=== PATIENT | male | born 1975 | race Caucasian/White ===

== ENCOUNTER 2016-10-12 08:29 | Emergency (ER) | payer MEDICAID ==
[~2016-10-12] VITALS: Ht 165.1 cm; Wt 68.0 kg
[~2016-10-12 08:29] MED LIST: QUET300T2 PO
[2016-10-12] MEDS ORDERED: IBUPROFEN 600 MG TABLET PO ONE ×2 (09:00→09:21)
[2016-10-12 10:28] VITALS: BP 132/90
== END 2016-10-12 10:29 | disposition home or self-care (01) ==
LOC: ER 08:32
DX: R05 Cough (principal); F31.9 Bipolar disorder, unspecified; F25.9 Schizoaffective disorder, unspecified; F17.200 Nicotine dependence, unspecified, uncomplicated; Z88.8 Allergy status to other drugs, medicaments and biological substances
CPT/HCPCS: 71010; 99283; A4606; Z7610

== ENCOUNTER 2017-02-13 01:42 | Emergency (ER) | payer MEDICAID ==
[~2017-02-13] VITALS: Ht 167.6 cm; Wt 64.9 kg
[2017-02-13] MEDS ORDERED: OLANZAPINE 5 MG/TAB.RAPDIS ONE (03:20)
[2017-02-13] MEDS: OLANZAPINE 5 MG/TAB.RAPDIS PO ONE (03:31)
[2017-02-13 06:01] VITALS: BP 136/88
== END 2017-02-13 06:03 | disposition home or self-care (01) ==
LOC: ER 01:47
DX: F15.10 Other stimulant abuse, uncomplicated (principal); F25.9 Schizoaffective disorder, unspecified; F31.9 Bipolar disorder, unspecified; F17.200 Nicotine dependence, unspecified, uncomplicated; Z98.890 Other specified postprocedural states; Z88.8 Allergy status to other drugs, medicaments and biological substances
CPT/HCPCS: A4606; Z7610

== ENCOUNTER 2017-08-16 00:11 | Emergency (ER) | payer MEDICAID ==
--- NOTE | 2017-08-16 00:35 | NUR ---
CALLED PT TO WR, NO RESPONSE. PT NOTED SLEEPING. PT STATES "I WANT TO SLEEP RIGHT NOW"
--- NOTE | 2017-08-16 01:10 | NUR ---
CALLED PT NAME TO DUSTIN. PT NOTED ASLEEP. CONTINUES TO STATES HE JUST WANTS TO SLEEP.
--- NOTE | 2017-08-16 01:56 | NUR ---
CALLED PT NAME. PT NOTED ASLEEP. PT EASILY AROUSED. PT STATES HE WANTS TO SLEEP AT THIS TIME.
--- NOTE | 2017-08-16 02:15 | NUR ---
CALLED PT IN WR. PT NOTED ASLEEP AND COMFORTABLE. PT STATES HE DOES NOT WANT TO BE SEEN AT THIS TIME. AND WOULD LIKE TO SLEEP.
== END 2017-08-16 02:15 | disposition home or self-care (01) ==
LOC: ER 00:12
DX: Z53.21 Procedure and treatment not carried out due to patient leaving prior to being seen by health care provider (principal)

== ENCOUNTER 2017-08-16 05:57 | Emergency (ER) | payer MEDICAID ==
[~2017-08-16] VITALS: Ht 167.6 cm; Wt 68.0 kg
[2017-08-16 06:10] VITALS: BP 135/79
== END 2017-08-16 06:53 | disposition home or self-care (01) ==
LOC: ER 05:59
DX: M79.671 Pain in right foot (principal); M79.672 Pain in left foot; B35.3 Tinea pedis; F20.9 Schizophrenia, unspecified; F17.200 Nicotine dependence, unspecified, uncomplicated; Z88.8 Allergy status to other drugs, medicaments and biological substances
CPT/HCPCS: 99282; A4606; Z7610

== ENCOUNTER 2017-12-12 01:37 | Emergency (ER) | payer MEDICAID ==
[~2017-12-12] VITALS: Ht 167.6 cm; Wt 59.9 kg
[2017-12-12 01:40] VITALS: BP 142/68
== END 2017-12-12 02:06 | disposition home or self-care (01) ==
LOC: ER 01:42
DX: F20.9 Schizophrenia, unspecified (principal); J06.9 Acute upper respiratory infection, unspecified; F10.10 Alcohol abuse, uncomplicated; F17.200 Nicotine dependence, unspecified, uncomplicated; Z88.8 Allergy status to other drugs, medicaments and biological substances
CPT/HCPCS: A4606; Z7502; Z7610

== ENCOUNTER 2018-01-19 05:34 | Emergency (ER) | payer MEDICAID ==
[~2018-01-19] VITALS: Ht 165.1 cm; Wt 68.0 kg
--- NOTE | 2018-01-19 05:40 | NUR ---
TO BED 13 A 43 YO MALE PATIENT BBRA 39 FROM [facility]; PER EMS, TOOK UNKNOWN MEDICATION. UPON ARRIVAL TO ER, PATIENT IS ASLEEP, MOANS/WITHDRAWS FROM DEEP PAIN. PUPILS SLOW TO DILATE WHEN SHOWN WITH LIGHT. PLACED PATIENT ON TELE MONITOR. VSS. WILL CLOSELY MONITOR. SAFETY MEASURES IN PLACE. DR WILSON AT BEDSIDE.
--- NOTE | 2018-01-19 05:55 | NUR ---
STARTED A SALINE LOCK ON THE RAC G18, BLOOD DRAWN AND SENT TO LAB.
[2018-01-19] MEDS ORDERED: NALOXONE HCL 0.4 MG/ML AMPUL IV ONE (06:00)
--- NOTE | 2018-01-19 06:03 | NUR ---
CLARIFIED NARCAN ORDER WITH DR HENRY HE IS TAKING OVER THE CARE OF PATIENT AND HE SAID, NARCAN 0.4MG GIVEN IS ENOUGH, NO NEED TO GIVE MORE DOSE.
[2018-01-19 06:15] LABS: APPEARANCE,URINE CLEAR (CLEAR); BILIRUBIN,URINE NEGATIVE (NEGATIVE); BLOOD, URINE NEGATIVE Ery/uL (NEGATIVE); COLOR,URINE YELLOW (YELLOW); KETONES,URINE NEGATIVE (NEGATIVE); LEUKOCYTE ESTERASE ,URINE NEGATIVE (NEGATIVE); NITRITE, URINE NEGATIVE (NEGATIVE); PROTEIN,URINE NEGATIVE (NEGATIVE); UGLUCOSE NEGATIVE (NEGATIVE); UROBILINOGEN,URINE 0.2 EU/dL (0.2)
[2018-01-19 06:18] LABS: CALCIUM, SERUM 9.2 mg/dL (8.5-10.1); CARBON DIOXIDE 26 mmol/L (21-32); CHLORIDE 105 mmol/L (98-107); CREATININE 0.8 mg/dL (0.6-1.3); GLUCOSE 157 mg/dL (74-106); POTASSIUM 3.5 mmol/L (3.5-5.1); SODIUM SERUM 138 mmol/L (136-145); UREA NITROGEN, BLOOD 16 mg/dL (7-18)
[2018-01-19 06:31] LABS: ALANINE AMINOTRANSFERASE 27 U/L (12-78); ALBUMIN 3.8 g/dL (3.4-5.0); ALCOHOL, BLOOD < 3 mg/dL (0-0); ALKALINE PHOSPHATASE 99 U/L (46-116); ASPARTATE AMINOTRANSFERASE 23 U/L (15-37); BILIRUBIN,TOTAL 0.7 mg/dL (0.2-1.0); TOTAL PROTEIN, SERUM 7.1 g/dL (6.4-8.2)
[2018-01-19 06:33] LABS: BASOPHILS % (AUTO) 0.2 % (0.0-2.0); EOSINOPHILS % (AUTO) 0.6 % (0.0-6.0); HEMATOCRIT 41 % (39-51); HEMOGLOBIN 13.8 g/dL (13.5-17.5); LYMPHOCYTES # (AUTO) 0.8 /CMM (0.8-4.8); LYMPHOCYTES % (AUTO) 7.3 % (20.0-44.0); MEAN CORPUSCULAR HGB CONC 34 g/dl (31.0-36.0); MEAN CORPUSCULAR VOLUME 87 fL (80-96); MONOCYTES # (AUTO) 0.4 /CMM (0.1-1.30); MONOCYTES % (AUTO) 3.5 % (2.0-12.0); NEUTROPHILS % (AUTO) 88.4 % (43.0-81.0); PLATELET COUNT (AUTO) 194 /CMM (150-450); RDW COEFFICIENT OF VARIATION 14.1 (11.5-15.0); RED BLOOD CELL COUNT(AUTO) 4.73 MIL/uL (4.5-6.0); WHITE BLOOD COUNT (AUTO) 11.4 K/uL (4.3-11.0)
[2018-01-19 06:38] LABS: ACETAMINOPHEN 0 ug/ml (10-30); SALICYLATE 0.3 mg/dL (2.8-20.0)
--- NOTE | 2018-01-19 08:00 | NUR ---
PT ASLEEP AROUSABLE TO CALL OF NAME GOES BACK TO SLEEP
--- NOTE | 2018-01-19 10:00 | NUR ---
PT ASLEEP AROUSABLE TO CALL OF NAME GOES BACK TO SLEEP
[2018-01-19] MEDS ORDERED: OLANZAPINE 10 MG VIAL IM ONE ×2 (11:00→11:12)
--- NOTE | 2018-01-19 11:00 | NUR ---
PT TRYING TO GET OOB AGITATED KICKING NEW ORDERS DR HENRY RESTRAINTS IN PLACED ORDERD
--- NOTE | 2018-01-19 14:38 | NUR ---
REMOVE RESTRAINTS PT SLEEPING AT THIS TIME.
--- NOTE | 2018-01-19 16:14 | NUR ---
PT AMBULATORY WITH STEADY GAIT, ALERT AND ORIENTED X 3
[2018-01-19 16:17] VITALS: BP 124/89
--- NOTE | 2018-01-19 16:27 | NUR ---
IV removed. Catheter intact and site benign. Pressure and 4x4 applied to site. No bleeding noted.
--- NOTE | 2018-01-19 16:32 | NUR ---
CALLED [facility] FOR TRANSPORT TO [facility], ETA 60 MIN, TRIP#[id number]
--- NOTE | 2018-01-19 16:51 | NUR ---
Patient discharged to home in stable condition. Written and verbal after care instructions given. Patient verbalizes understanding of instruction.
== END 2018-01-19 16:53 | disposition home or self-care (01) ==
LOC: ER 05:36
DX: F29 Unspecified psychosis not due to a substance or known physiological condition (principal); F10.10 Alcohol abuse, uncomplicated; F17.200 Nicotine dependence, unspecified, uncomplicated; F20.9 Schizophrenia, unspecified; Z60.2 Problems related to living alone; Z88.8 Allergy status to other drugs, medicaments and biological substances
CPT/HCPCS: 36415; 80048-TC; 80076-TC; 80305; 81000-TC; 85025-TC; A4606; G0480; J3490; Z7610

== ENCOUNTER 2018-06-25 19:35 | Emergency (ER) | payer MEDICAID ==
--- NOTE | 2018-06-25 21:39 | NUR ---
CALLED PT X3 IN WR. PER ADMITTING PT LEFT WITHOUT BEING SEEN.
== END 2018-06-25 21:51 | disposition left against medical advice (07) ==
LOC: ER 19:48
DX: Z53.21 Procedure and treatment not carried out due to patient leaving prior to being seen by health care provider (principal)

== ENCOUNTER 2019-05-13 07:01 | Emergency (ER) | payer MEDICAID ==
[~2019-05-13] VITALS: Ht 170.2 cm; Wt 70.3 kg
--- NOTE | 2019-05-13 07:20 | NUR ---
bb ra, per ems pt climbed on top of garbage truck. pt dennied any pain or discomfort at this time.
--- NOTE | 2019-05-13 08:39 | NUR ---
Social service consult requested by Dr. Osorio for homelessness. Pt. is a 44 year old male who was brought in by EMS because pt. was found inside a garbage truck. SW met with pt. bedside. Pt. is alert and oriented x 4. Pt. appears dirty and disheveled. Pt. is homeless. SW offered pt. senior living placement, however pt declined stating he is going to [facility]. SW inquired with pt. if he uses any drugs. Pt. stated methamphetamines. Pt. receives $900/ month in SSI. Pt. was provided with a TAP card and breakfast. The pt. was given the following homeless resources: [facility] located at [address] [facility]. ; [facility] [place], [address] [place] [address], [place] ; [facility] [place], [address] [facility] ; [facility] Homeless Resource Directory which includes food stamps, transitional housing, showers and hot meals etc; Mental Health clinics such as [facility] ; [facility] ; Health clinics;[facility] and Alcohol treatment centers such as [facility], ; [facility] Substance Abuse Hotline and [facility] . Homeless Patient waiver form was signed by the pt. and placed in pt's chart. No other social service needs are requested at this time.
--- NOTE | 2019-05-13 08:43 | NUR ---
BREAKFAST TRAY PROVIDED, PT TOLERATING PO WELL
[2019-05-13 09:06] VITALS: BP 138/87
--- NOTE | 2019-05-13 09:09 | NUR ---
Patient given written and verbal discharge instructions. Patient verbalizes understanding of instructions. Patient is ambulatory with steady gait. Refuses offer of usp placement. Patient given list of available shelters in surrounding area. Patient signed homeless waiver form, in proper clothing, name band removed.
== END 2019-05-13 09:12 | disposition home or self-care (01) ==
LOC: ER 07:04
DX: R46.1 Bizarre personal appearance (principal); Z88.8 Allergy status to other drugs, medicaments and biological substances; Z60.2 Problems related to living alone; Z79.899 Other long term (current) drug therapy

== ENCOUNTER 2019-05-14 18:03 | Emergency (ER) | payer MEDICAID ==
[~2019-05-14] VITALS: Ht 167.6 cm; Wt 70.8 kg
[2019-05-14 18:28] VITALS: BP 146/84
[2019-05-14 18:53] LABS: BASOPHILS % (AUTO) 0.5 % (0.0-2.0); EOSINOPHILS % (AUTO) 2.9 % (0.0-6.0); HEMATOCRIT 40 % (39-51); HEMOGLOBIN 13.4 g/dL (13.5-17.5); LYMPHOCYTES % (AUTO) 16.3 % (20.0-44.0); MEAN CORPUSCULAR HGB CONC 34 g/dl (31.0-36.0); MEAN CORPUSCULAR VOLUME 90 fL (80-96); MONOCYTES # (AUTO) 0.4 /CMM (0.1-1.30); MONOCYTES % (AUTO) 6.5 % (2.0-12.0); NEUTROPHILS # (AUTO) 4.6 /CMM (1.8-8.9); NEUTROPHILS % (AUTO) 73.8 % (43.0-81.0); PLATELET COUNT (AUTO) 171 /CMM (150-450); RED BLOOD CELL COUNT(AUTO) 4.39 MIL/uL (4.5-6.0); WHITE BLOOD COUNT (AUTO) 6.2 K/uL (4.3-11.0)
[2019-05-14 19:01] LABS: CALCIUM, SERUM 8.5 mg/dL (8.5-10.1); CARBON DIOXIDE 30 mmol/L (21-32); CHLORIDE 104 mmol/L (98-107); CREATININE 0.8 mg/dL (0.6-1.3); GLUCOSE 134 mg/dL (74-106); SODIUM SERUM 139 mmol/L (136-145); UREA NITROGEN, BLOOD 16 mg/dL (7-18)
[2019-05-14 19:07] LABS: ACETAMINOPHEN 1 ug/ml (10-30); ALANINE AMINOTRANSFERASE 47 U/L (12-78); ALKALINE PHOSPHATASE 97 U/L (46-116); ASPARTATE AMINOTRANSFERASE 50 U/L (15-37); BILIRUBIN,DIRECT 0.1 mg/dL (0.0-0.2); BILIRUBIN,TOTAL 0.5 mg/dL (0.2-1.0)
[2019-05-14 19:08] LABS: ALCOHOL, BLOOD < 3 mg/dL (0-0); SALICYLATE < 0.2 mg/dL (2.8-20.0)
[2019-05-14] MEDS ORDERED: CYCLOBENZAPRINE 10 MG TABLET PO ONE (19:30)
[2019-05-14] MEDS ORDERED: KETOROLAC TROMETHAMINE INJ 30 MG/ML VIAL IM ONE (19:30)
[2019-05-14] MEDS ORDERED: KETOROLAC TROMETHAMINE INJ 30 MG/ML VIAL ONE (19:41)
[2019-05-14] MEDS ORDERED: CYCLOBENZAPRINE 10 MG TABLET ONE (19:42)
--- NOTE | 2019-05-14 19:54 | NUR ---
PT +SI " I WANT TO CUT MY WRISTS ". AAOX4, VSS. RR EVEN & UNLABORED. DENIES CP, SOB, DIZZINESS, N/V, WEAKNESS @ THIS TIME. SEEN & EVAL'D BY DR. CELESTIN. MEDICATED FOR NECK PAIN. PT SIS WELL. WILL CONT TO MONITOR. HANH @ BS.
[2019-05-14 20:02] LABS: APPEARANCE,URINE Clear (CLEAR); BILIRUBIN,URINE Negative (NEGATIVE); BLOOD, URINE Negative Ery/uL (NEGATIVE); COLOR,URINE Yellow (YELLOW); KETONES,URINE Negative (NEGATIVE); LEUKOCYTE ESTERASE ,URINE Negative (NEGATIVE); NITRITE, URINE Negative (NEGATIVE); PH,URINE 7.5 (5.0-8.0); PROTEIN,URINE Negative (NEGATIVE); UGLUCOSE Negative (NEGATIVE); UROBILINOGEN,URINE 0.2 EU/dL (0.2)
--- NOTE | 2019-05-14 22:11 | NUR ---
[facility] ETA 0855 TRIP #[id number]
--- NOTE | 2019-05-15 00:25 | NUR ---
[facility] AT BEDSIDE FOR TRANSPORT TO [facility].
== END 2019-05-15 00:27 ==
LOC: ER 18:05
DX: R45.851 Suicidal ideations (principal); F17.200 Nicotine dependence, unspecified, uncomplicated; Z88.8 Allergy status to other drugs, medicaments and biological substances; Z60.2 Problems related to living alone; Z79.899 Other long term (current) drug therapy
CPT/HCPCS: 36415; 80048; 80076; 80305; 80307; 80329; 81001; 85025; 96372; 99285; G0480; J1885; J7030; 81000-TC

== ENCOUNTER 2019-06-15 17:29 | Emergency (ER) | payer MEDICAID ==
[~2019-06-15] VITALS: Ht 167.6 cm; Wt 63.5 kg
--- NOTE | 2019-06-15 20:00 | NUR ---
DELIA FROM STREET. TO ER BED 9. AAOX4. DESHEVELED. NAD NOTED. BRETHING EVEN AND UNLABORED. AMBULATORY. C/O SUICIDAL IDEATION. PT REPORTS THAT HE IS OVERWHELMED WITH HIS LIFE AND WOULD LIKE TO GET HELPED MENTALLY. PT REPORTS PLANS OF CUUTING HIS WRIST, HAVE NO ACCESS NO KNIFE. PT DENIES HI. DENIES AUDITORY AND VISUAL HALLUCINATION. PT WAS STRIPPED OF CLOTHING AND BELONGINGS AND VISUAL BODY CHECK. BELONGINGS PLACED IN LOCKER [facility]. 1:1 SITTER WATCHING PT. AT BEDSIDE FOR EVAL. ORDERS RECEIVED NOTED NAD CARRIED OUT. URINE COLLECTED AND SENT TO LAB
[2019-06-15 20:03] LABS: BASOPHILS % (AUTO) 0.7 % (0.0-2.0); EOSINOPHILS % (AUTO) 1.6 % (0.0-6.0); HEMATOCRIT 42 % (39-51); HEMOGLOBIN 14.4 g/dL (13.5-17.5); LYMPHOCYTES # (AUTO) 2.1 /CMM (0.8-4.8); LYMPHOCYTES % (AUTO) 40.9 % (20.0-44.0); MEAN CORPUSCULAR HGB CONC 34 g/dl (31.0-36.0); MEAN CORPUSCULAR VOLUME 89 fL (80-96); MONOCYTES # (AUTO) 0.5 /CMM (0.1-1.30); MONOCYTES % (AUTO) 8.7 % (2.0-12.0); NEUTROPHILS # (AUTO) 2.5 /CMM (1.8-8.9); NEUTROPHILS % (AUTO) 48.1 % (43.0-81.0); PLATELET COUNT (AUTO) 244 /CMM (150-450); RED BLOOD CELL COUNT(AUTO) 4.76 MIL/uL (4.5-6.0); WHITE BLOOD COUNT (AUTO) 5.2 K/uL (4.3-11.0)
[2019-06-15 20:13] LABS: CALCIUM, SERUM 8.9 mg/dL (8.5-10.1); CARBON DIOXIDE 30 mmol/L (21-32); CHLORIDE 101 mmol/L (98-107); CREATININE 0.8 mg/dL (0.6-1.3); GLUCOSE 76 mg/dL (74-106); POTASSIUM 3.7 mmol/L (3.5-5.1); SODIUM SERUM 135 mmol/L (136-145); UREA NITROGEN, BLOOD 15 mg/dL (7-18)
[2019-06-15 20:14] LABS: APPEARANCE,URINE Clear (CLEAR); BILIRUBIN,URINE SMALL (NEGATIVE); BLOOD, URINE Negative Ery/uL (NEGATIVE); COLOR,URINE Yellow (YELLOW); KETONES,URINE Negative (NEGATIVE); LEUKOCYTE ESTERASE ,URINE Negative (NEGATIVE); NITRITE, URINE Negative (NEGATIVE); PH,URINE 5.5 (5.0-8.0); PROTEIN,URINE Negative (NEGATIVE); UGLUCOSE Negative (NEGATIVE); UROBILINOGEN,URINE 0.2 EU/dL (0.2)
[2019-06-15 20:18] LABS: ALANINE AMINOTRANSFERASE 23 U/L (12-78); ALBUMIN 3.9 g/dL (3.4-5.0); ALCOHOL, BLOOD < 3 mg/dL (0-0); ALKALINE PHOSPHATASE 94 U/L (46-116); ASPARTATE AMINOTRANSFERASE 20 U/L (15-37); BILIRUBIN,DIRECT 0.3 mg/dL (0.0-0.2); BILIRUBIN,TOTAL 1.5 mg/dL (0.2-1.0)
[2019-06-15 20:23] LABS: ACETAMINOPHEN 0 ug/ml (10-30)
--- NOTE | 2019-06-15 20:33 | NUR ---
SPOKE WITH FRANKI FROM [facility], WAITING TO SEE IF BEDS ARE AVAILABLE AT THIS TIME
--- NOTE | 2019-06-15 22:00 | NUR ---
PER FRANKI AT [facility], BEDS AVAILABLE AT THIS TIME. WILL FAX CLINICAL INFORMATION, PENDING ADMISSION
--- NOTE | 2019-06-16 00:02 | NUR ---
PT [facility]ED [facility] MD ACCEPTING: DR. CAMPBELL NUMBER FOR REPORT: [phone]
--- NOTE | 2019-06-16 00:18 | NUR ---
CALLED [facility] FOR TRANSPORTATION TO [facility]. ETA [phone]
--- NOTE | 2019-06-16 00:32 | NUR ---
GAVE REPORT TO GUILHERME PÉREZ FROM [facility] FOR STEFANIE
[2019-06-16 00:38] VITALS: BP 105/70
--- NOTE | 2019-06-16 00:53 | NUR ---
GAVE REPORT TO [facility] FOR TRANSPORTATION STEFANIE
== END 2019-06-16 00:54 ==
LOC: ER 17:32
DX: R45.851 Suicidal ideations (principal); F15.10 Other stimulant abuse, uncomplicated; F17.200 Nicotine dependence, unspecified, uncomplicated; Z59.0 Homelessness; Z88.8 Allergy status to other drugs, medicaments and biological substances; Z79.899 Other long term (current) drug therapy
CPT/HCPCS: 36415; 80048; 80076; 80305; 80307; 80329; 81001; 85025; 99285; G0480; 81000-TC

== ENCOUNTER 2019-06-30 02:18 | Emergency (ER) | payer MEDICAID ==
[~2019-06-30] VITALS: Ht 167.6 cm; Wt 63.0 kg
--- NOTE | 2019-06-30 02:35 | NUR ---
PT BIB SELF C/O "I'M FEELING SUICIDAL AND MY PLAN IS TO CUT MY WRIST". ADMITS TO METH USE TONIGHT. DENIES HI. NAD NOTED. RESP EVEN AND UNLABORED. PT DENIES PAIN AT THIS TIME. PT IN BED 12. WILL CONTINUE TO MONITOR.
[2019-06-30] MEDS ORDERED: OLANZAPINE 5 MG TABLET ONE (02:55)
[2019-06-30 02:57] LABS: BASOPHILS % (AUTO) 0.7 % (0.0-2.0); EOSINOPHILS % (AUTO) 2.9 % (0.0-6.0); HEMATOCRIT 39 % (39-51); LYMPHOCYTES # (AUTO) 2.2 /CMM (0.8-4.8); LYMPHOCYTES % (AUTO) 42.3 % (20.0-44.0); MEAN CORPUSCULAR HGB CONC 34 g/dl (31.0-36.0); MEAN CORPUSCULAR VOLUME 89 fL (80-96); MONOCYTES # (AUTO) 0.3 /CMM (0.1-1.30); MONOCYTES % (AUTO) 6.3 % (2.0-12.0); NEUTROPHILS # (AUTO) 2.4 /CMM (1.8-8.9); NEUTROPHILS % (AUTO) 47.8 % (43.0-81.0); PLATELET COUNT (AUTO) 209 /CMM (150-450); RED BLOOD CELL COUNT(AUTO) 4.36 MIL/uL (4.5-6.0); WHITE BLOOD COUNT (AUTO) 5.1 K/uL (4.3-11.0)
[2019-06-30] MEDS ORDERED: OLANZAPINE 5 MG TABLET PO ONE (03:00)
[2019-06-30 03:01] LABS: CARBON DIOXIDE 28 mmol/L (21-32); CHLORIDE 106 mmol/L (98-107); CREATININE 0.9 mg/dL (0.6-1.3); GLUCOSE 91 mg/dL (74-106); POTASSIUM 3.5 mmol/L (3.5-5.1); SODIUM SERUM 142 mmol/L (136-145); UREA NITROGEN, BLOOD 13 mg/dL (7-18)
[2019-06-30 03:07] LABS: ALANINE AMINOTRANSFERASE 30 U/L (12-78); ALBUMIN 3.3 g/dL (3.4-5.0); ALCOHOL, BLOOD < 3 mg/dL (0-0); ALKALINE PHOSPHATASE 92 U/L (46-116); ASPARTATE AMINOTRANSFERASE 32 U/L (15-37); BILIRUBIN,DIRECT 0.2 mg/dL (0.0-0.2); BILIRUBIN,TOTAL 0.8 mg/dL (0.2-1.0)
[2019-06-30 03:12] LABS: ACETAMINOPHEN 0 ug/ml (10-30); SALICYLATE 0.2 mg/dL (2.8-20.0)
[2019-06-30 03:34] LABS: APPEARANCE,URINE Clear (CLEAR); BILIRUBIN,URINE Negative (NEGATIVE); BLOOD, URINE Negative Ery/uL (NEGATIVE); COLOR,URINE Yellow (YELLOW); KETONES,URINE Negative (NEGATIVE); LEUKOCYTE ESTERASE ,URINE Negative (NEGATIVE); NITRITE, URINE Negative (NEGATIVE); PH,URINE 5.5 (5.0-8.0); PROTEIN,URINE Negative (NEGATIVE); UGLUCOSE Negative (NEGATIVE); UROBILINOGEN,URINE 0.2 EU/dL (0.2)
--- NOTE | 2019-06-30 04:48 | NUR ---
PER [facility], NO BEDS AVAILABLE AT THIS TIME. POSSIBLE AFTER DISCHARGES IN THE MORNING
--- NOTE | 2019-06-30 05:53 | NUR ---
Patient is resting comfortably in bed with eyes closed. Easily aroused. VSS
--- NOTE | 2019-06-30 07:28 | NUR ---
ASSESSED PT ON BED ASLEEP EASILY AROUSABLE, V/S STABLE, KEPT RESTED AND COMFORTABLE, WILL CONTINUE TO MONITOR.
--- NOTE | 2019-06-30 08:15 | NUR ---
JUAN contacted ED and spoke with RN Iron who informed JUAN that pt's clinicals were faxed to [facility]. JUAN contacted [facility] regarding bed availibility. Jerson informed JUAN the pt. has been accepted to [facility] and intake will be calling JUAN within an hour for report. Jerson informed JUAN they are awaiting discharges at [facility]. JUAN updated [facility] Gener.
--- NOTE | 2019-06-30 08:20 | NUR ---
CLAUDIA LEMUS AT BEDSIDE FOR EVAL
--- NOTE | 2019-06-30 08:25 | NUR ---
Social service consult requested by KE Campbell for suicidal ideations with a plan to cut his wrist. Pt. is a 44 year old male who came to to this emergency Department saying he is suicidal with a plan is to cut his wrist. Patient requests to be a voluntary admission psychiatric facility. JUAN met with the pt. bedside. Pt. is alert and oriented x 3. Pt. appears disheveled. Pt. is homeless. Pt. voiced to JUAN that he is suicidal with a plan to cut his wrist. Pt. was previously discharged from [facility]. Pt. is denying homicidal ideation. He denies auditory or visual hallucinations. Pt. has a psychiatric history of Schizophrenia. Pt. receives $900/ month in SSI. Pt. is a methamphetamine user and last used yesterday. Pt's toxicology is positive for methamphetamines, Cocaine and cannabinoids. Clinicals were faxed to intake at [facility] and pt. is awaiting a bed at [facility].
--- NOTE | 2019-06-30 08:26 | NUR ---
WAITING ON A BED AT [facility] PER CLAUDIA
--- NOTE | 2019-06-30 08:30 | NUR ---
FOOD TRAY PROVIDED.
--- NOTE | 2019-06-30 11:04 | NUR ---
REPORT GIVEN TO BETO HOLLIS OF [facility] FOR [facility].
--- NOTE | 2019-06-30 11:58 | NUR ---
ETA [phone] LGKL [id number]
--- NOTE | 2019-06-30 14:15 | NUR ---
REPORT GIVEN TO EMT FOR PT TRANSFER TO [facility].
[2019-06-30 14:35] VITALS: BP 122/81
== END 2019-06-30 14:38 ==
LOC: ER 02:30
DX: F20.9 Schizophrenia, unspecified (principal); F19.10 Other psychoactive substance abuse, uncomplicated; F17.200 Nicotine dependence, unspecified, uncomplicated; Z88.8 Allergy status to other drugs, medicaments and biological substances; Z59.0 Homelessness; Z79.899 Other long term (current) drug therapy
CPT/HCPCS: 36415; 80048; 80076; 80305; 80307; 80329; 81001; 85025; 99285; G0480; 81000-TC

== ENCOUNTER 2019-10-29 06:38 | Emergency (ER) | payer MEDICAID ==
[~2019-10-29] VITALS: Ht 167.6 cm; Wt 63.5 kg
--- NOTE | 2019-10-29 06:38 | NUR ---
TO ER BED 15 AMBULATORY C/O HALLUCINATION, SI WITH PLAN TO CUT WRIST. ADMITS TO METH USE THIS AM. PT AAOX4 TRACEY CUTE DISTRESS NOTED, RESP EVEN AND UNLABORED. PT CALM AND COOPERATIVE AT THIS TIME. PLACE PT ON HOSPITAL GOWN, ALL BELONGINGS REMOVED FROM ROOM AND PLACE IN LOCKED HOSPITAL LOCKER. 1:1 SITTER AT BEDSIDE FOR PT SAFETY. ER MD AT BEDSIDE TO EVAL PT WITH ORDERS RECEIVED. WILL CARRY OUT ORDERS.
--- NOTE | 2019-10-29 06:40 | NUR ---
URINE SAMPLE COLLECTED AND SENT TO LAB.
[2019-10-29] MEDS ORDERED: OLANZAPINE 5 MG TABLET ONE (07:27)
[2019-10-29] MEDS ORDERED: OLANZAPINE 5 MG TABLET PO ONE (07:30)
[2019-10-29 07:41] LABS: APPEARANCE,URINE CLEAR (CLEAR); BILIRUBIN,URINE NEGATIVE (NEGATIVE); BLOOD, URINE NEGATIVE Ery/uL (NEGATIVE); COLOR,URINE YELLOW (YELLOW); KETONES,URINE NEGATIVE (NEGATIVE); LEUKOCYTE ESTERASE ,URINE NEGATIVE (NEGATIVE); NITRITE, URINE NEGATIVE (NEGATIVE); PROTEIN,URINE TRACE mg/dl (NEGATIVE); UGLUCOSE NEGATIVE (NEGATIVE); UROBILINOGEN,URINE 0.2 EU/dL (0.2)
[2019-10-29 07:48] LABS: BASOPHILS % (AUTO) 0.2 % (0.0-2.0); EOSINOPHILS % (AUTO) 0.3 % (0.0-6.0); HEMATOCRIT 40 % (39-51); HEMOGLOBIN 13.3 g/dL (13.5-17.5); LYMPHOCYTES # (AUTO) 1.1 /CMM (0.8-4.8); LYMPHOCYTES % (AUTO) 6.6 % (20.0-44.0); MEAN CORPUSCULAR HGB CONC 33 g/dl (31.0-36.0); MEAN CORPUSCULAR VOLUME 86 fL (80-96); MONOCYTES # (AUTO) 0.9 /CMM (0.1-1.30); MONOCYTES % (AUTO) 5.2 % (2.0-12.0); NEUTROPHILS # (AUTO) 15.1 /CMM (1.8-8.9); NEUTROPHILS % (AUTO) 87.7 % (43.0-81.0); PLATELET COUNT (AUTO) 327 /CMM (150-450); RED BLOOD CELL COUNT(AUTO) 4.68 MIL/uL (4.5-6.0); WHITE BLOOD COUNT (AUTO) 17.2 K/uL (4.3-11.0)
--- NOTE | 2019-10-29 08:08 | NUR ---
MEDICAL TECHNOLOGIST GENERALIST was informed by RN Eusebio that pt. is suicidal with a plan and wants voluntary psychiatric admission to [facility]. MEDICAL TECHNOLOGIST GENERALIST called Jerson at [facility] regarding bed availability. Per Jerson, they will have a bed for the pt and to fax clinicals.
[2019-10-29 08:15] LABS: CALCIUM, SERUM 9.4 mg/dL (8.5-10.1); CARBON DIOXIDE 28 mmol/L (21-32); CHLORIDE 99 mmol/L (98-107); GLUCOSE 105 mg/dL (74-106); POTASSIUM 3.9 mmol/L (3.5-5.1); SODIUM SERUM 137 mmol/L (136-145); UREA NITROGEN, BLOOD 16 mg/dL (7-18)
--- NOTE | 2019-10-29 08:20 | NUR ---
JUAN TAYLOR AT BEDSIDE
[2019-10-29 08:21] LABS: ALANINE AMINOTRANSFERASE 103 U/L (12-78); ALBUMIN 3.6 g/dL (3.4-5.0); ALCOHOL, BLOOD < 3 mg/dL (0-0); ALKALINE PHOSPHATASE 105 U/L (46-116); ASPARTATE AMINOTRANSFERASE 48 U/L (15-37); BILIRUBIN,DIRECT 0.2 mg/dL (0.0-0.2); BILIRUBIN,TOTAL 1.4 mg/dL (0.2-1.0); TOTAL PROTEIN, SERUM 7.8 g/dL (6.4-8.2)
[2019-10-29 08:23] LABS: ACETAMINOPHEN < 2 ug/ml (10-30); SALICYLATE < 0.2 mg/dL (2.8-20.0)
--- NOTE | 2019-10-29 08:33 | NUR ---
Social service consult requested by MD for suicidal ideation with a plan. Per MD notes, pt is a 44-year-old male, patient is self-referred. Patient has a history of methamphetamine abuse. Patient states that he is suicidal and has a plan to cut his wrist. Patient is hearing voices telling him to do this. INSPECTOR TOYS met with the pt bedside. INSPECTOR TOYS introduced self and explained her role. Pt is alert and oriented x 4. Pt appears guarded. Pt states he is homeless. Pt reports to have a psychiatric diagnosis of Schizoaffective disorder and is currently feeling suicidal with a plan to cut his wrists. Pt's last psychiatric hospitalization was a month ago. Pt would like voluntary psychiatric admission to [facility]. INSPECTOR TOYS informed pt she has referred him to [facility]. Pt is non-compliant with his psychotropic medication. Pt reports, he only takes his medications Zyprexa, gabapentin, Ativan and Seroquel when he is admitted in a psychiatric hospital. Pt is a methamphetamine use and last used this am. Pt drinks a pint of vodka a few times per week. Pt receives food stamps, [employer] and SSI ($900/month). INSPECTOR TOYS provided active listening and supportive counseling. INSPECTOR TOYS faxed clinical referral packet to [facility] intake . INSPECTOR TOYS updated MD regarding pt's discharge plan.
--- NOTE | 2019-10-29 08:49 | NUR ---
ACCOUNTANT CLERK received a call from Anitha at [facility] informing pt's clinicals are being reviewed by CRN at [place]. Once reviewed and accepted, intake will call back for transfer to [facility] location.
--- NOTE | 2019-10-29 10:18 | NUR ---
NEWBORN HEARING SCREENER called Anitha at [facility] to f/up regarding acceptance of the pt. to [facility]. Per Anitha, clinicals are still under review by BETO Craven at [facility].
--- NOTE | 2019-10-29 11:01 | NUR ---
RAILROAD MAINTENANCE CLERK received a callback from [facility] at [facility] intake. Pt has been accepted to [facility]. Accepting Dr Jordan. Psych floor P4. Report to KE Muñoz or Merissa at x [phone] or [phone].
--- NOTE | 2019-10-29 11:06 | NUR ---
AUTOMATIC RIVETING MACHINE OPERATOR manda Shelton in ED regarding pt. being accepted at [facility]. Addendum: 10/29/19 at 1107 by CLAUDIA MARTINEZ Manda Mahoney
--- NOTE | 2019-10-29 12:20 | NUR ---
CALLED [facility] FOR TRANSPORT TO [facility]. ETA 30 MINUTES.
--- NOTE | 2019-10-29 12:49 | NUR ---
REPORT GIVEN TO KRISHNA AT [facility].
[2019-10-29 13:02] VITALS: BP 139/85
--- NOTE | 2019-10-29 13:46 | NUR ---
Patient picked up by [facility] Unit [address] in stable condition. Patient will be transferred to [facility]. Documents given to Ambulance to be given to the receiving facility.
--- NOTE | 2019-10-29 13:50 | NUR ---
all belongings given to patient
== END 2019-10-29 13:52 ==
LOC: ER 06:38
DX: R44.0 Auditory hallucinations (principal); R45.851 Suicidal ideations; F15.10 Other stimulant abuse, uncomplicated; F10.10 Alcohol abuse, uncomplicated; F17.200 Nicotine dependence, unspecified, uncomplicated; Y90.0 Blood alcohol level of less than 20 mg/100 ml; Z59.0 Homelessness; Z79.899 Other long term (current) drug therapy; Z88.8 Allergy status to other drugs, medicaments and biological substances
CPT/HCPCS: 36415; 80048; 80076; 80305; 80307; 80329; 81001; 85025; 99285; G0480; 81000-TC

== ENCOUNTER 2019-11-16 12:33 | Emergency (ER) | payer MEDICAID ==
[~2019-11-16] VITALS: Ht 167.6 cm; Wt 63.5 kg
--- NOTE | 2019-11-16 13:00 | NUR ---
CALLED TO TRIAGE,NO ANSWER
--- NOTE | 2019-11-16 13:10 | NUR ---
pt called to triage, pt not in waiting room
[2019-11-16] MEDS ORDERED: LORAZEPAM 1 MG TABLET PO ONE (14:00)
[2019-11-16] MEDS ORDERED: OLANZAPINE 5 MG TABLET PO ONE (14:00)
[2019-11-16 14:09] LABS: BASOPHILS % (AUTO) 0.8 % (0.0-2.0); EOSINOPHILS % (AUTO) 2.8 % (0.0-6.0); HEMATOCRIT 39 % (39-51); HEMOGLOBIN 12.9 g/dL (13.5-17.5); LYMPHOCYTES # (AUTO) 1.8 /CMM (0.8-4.8); LYMPHOCYTES % (AUTO) 45.5 % (20.0-44.0); MEAN CORPUSCULAR HGB CONC 33 g/dl (31.0-36.0); MEAN CORPUSCULAR VOLUME 87 fL (80-96); MONOCYTES # (AUTO) 0.4 /CMM (0.1-1.30); MONOCYTES % (AUTO) 9.1 % (2.0-12.0); NEUTROPHILS # (AUTO) 1.6 /CMM (1.8-8.9); NEUTROPHILS % (AUTO) 41.8 % (43.0-81.0); PLATELET COUNT (AUTO) 240 /CMM (150-450); RED BLOOD CELL COUNT(AUTO) 4.44 MIL/uL (4.5-6.0); WHITE BLOOD COUNT (AUTO) 3.9 K/uL (4.3-11.0)
[2019-11-16] MEDS ORDERED: OLANZAPINE 5 MG TABLET ONE (14:12)
[2019-11-16] MEDS ORDERED: LORAZEPAM 1 MG TABLET ONE (14:12)
[2019-11-16 14:18] LABS: CALCIUM, SERUM 9.2 mg/dL (8.5-10.1); CARBON DIOXIDE 28 mmol/L (21-32); CHLORIDE 104 mmol/L (98-107); CREATININE 0.9 mg/dL (0.6-1.3); GLUCOSE 93 mg/dL (74-106); POTASSIUM 3.7 mmol/L (3.5-5.1); SODIUM SERUM 141 mmol/L (136-145); UREA NITROGEN, BLOOD 14 mg/dL (7-18)
[2019-11-16 14:24] LABS: ACETAMINOPHEN 0 ug/ml (10-30); ALANINE AMINOTRANSFERASE 19 U/L (12-78); ALBUMIN 3.9 g/dL (3.4-5.0); ALCOHOL, BLOOD < 3 mg/dL (0-0); ALKALINE PHOSPHATASE 99 U/L (46-116); ASPARTATE AMINOTRANSFERASE 24 U/L (15-37); BILIRUBIN,DIRECT 0.4 mg/dL (0.0-0.2); SALICYLATE < 2.8 mg/dL (2.8-20.0); TOTAL PROTEIN, SERUM 7.1 g/dL (6.4-8.2)
[2019-11-16 14:29] LABS: APPEARANCE,URINE Clear (CLEAR); BILIRUBIN,URINE SMALL (NEGATIVE); BLOOD, URINE Negative Ery/uL (NEGATIVE); COLOR,URINE Yellow (YELLOW); KETONES,URINE 15 (NEGATIVE); LEUKOCYTE ESTERASE ,URINE Negative (NEGATIVE); NITRITE, URINE Negative (NEGATIVE); PH,URINE 5.5 (5.0-8.0); PROTEIN,URINE Negative (NEGATIVE); UGLUCOSE Negative (NEGATIVE); UROBILINOGEN,URINE 0.2 EU/dL (0.2)
[2019-11-16 14:30] LABS: BACTERIA,URINE Rare /HPF (None Seen); RBC,URINE 0-2 /HPF (0-2); SQUAMOUS EPITHELIAL CELL,UR Rare /HPF (None Seen); WBC,URINE 0-2 /HPF (0-3)
--- NOTE | 2019-11-16 14:43 | NUR ---
Social service consult requested by MD for voluntary psychiatric admission. Pt is a 44-year-old male, patient is self-referred. Patient has a history of methamphetamine abuse. DRIVER MESSENGER met with the pt in ED. Pt was sitting in a chair with is belongings next to him. Pt was writing in his notebook. DRIVER MESSENGER is familiar with the pt from previous ED visits for the same complaint. DRIVER MESSENGER introduced self and explained her role. Pt is alert and oriented x 3. Pt appears to be manic with pressured speech and disorganized thoughts. Pt denies SI/HI, however states, " I am really manic and I need to check myself into [facility]." Pt reports to have a psychiatric diagnosis of Schizoaffective disorder. Pt's last psychiatric hospitalization was a few weeks ago. Pt is non-compliant with his psychotropic medication. Pt reports, he only takes his medications Zyprexa, gabapentin, Ativan and Seroquel when he is admitted in a psychiatric hospital. Pt is a methamphetamine use and last used this am. Pt drinks a pint of vodka a few times per week. Pt receives food stamps, [employer] and SSI ($900/month). DRIVER MESSENGER provided active listening and supportive counseling to the pt. Pt would like voluntary psychiatric admission to [facility]. DRIVER MESSENGER informed pt she will refer him to [facility]. ALLAN contacted Jerson at [facility] . Jerson informed DRIVER MESSENGER they will have a bed for the pt and to fax clinicals. ALLAN updated KE Lange in ED.
--- NOTE | 2019-11-16 14:55 | NUR ---
PT REC'D A LUNCH TRAY. PT IS TOLERATING PO WELL.
--- NOTE | 2019-11-16 15:30 | NUR ---
CALLED ORDER TRACER MARTHA FOR EVAL Addendum: 11/16/19 at 1531 by LAILA LEFT VOICEMAIL
--- NOTE | 2019-11-16 15:33 | NUR ---
PT MOVED TO ER 11.5
--- NOTE | 2019-11-16 16:02 | NUR ---
PT IS ACCEPTED AT [facility]. WAITING FOR TRANSFER INFO.
--- NOTE | 2019-11-16 16:15 | NUR ---
DISH WASHER faxed medical clearance report to [facility] intake dept. DISH WASHER received a call from intake and informed them to f/u with ED.
--- NOTE | 2019-11-16 17:47 | NUR ---
ACCEPTED BY DR NEAL AND ROC ARDON AT [facility], RN [phone] SUNDAR PÉREZ SUP
--- NOTE | 2019-11-16 18:33 | NUR ---
called lourdes armstrong who told me to call [phone] ext [phone]
--- NOTE | 2019-11-16 18:34 | NUR ---
calling report to mayelin perdue. REPORT GIVEN TO BETO JEREZ
--- NOTE | 2019-11-16 18:57 | NUR ---
[facility] TRIP# [id number] ETA [id number]
--- NOTE | 2019-11-16 20:16 | NUR ---
[facility] ARRIVED AND REPORT WAS GIVEN TO EMT. PT IS BEING TRANSPORTED TO [facility] VIA AMBULANCE.
[2019-11-16 20:24] VITALS: BP 145/72
== END 2019-11-16 20:26 ==
LOC: ER 12:33
DX: F15.10 Other stimulant abuse, uncomplicated (principal); F28 Other psychotic disorder not due to a substance or known physiological condition; F20.9 Schizophrenia, unspecified; F17.200 Nicotine dependence, unspecified, uncomplicated; Z88.8 Allergy status to other drugs, medicaments and biological substances; Z59.0 Homelessness; Z79.899 Other long term (current) drug therapy
CPT/HCPCS: 36415; 80048; 80076; 80305; 80307; 80329; 81001; 85025; 99285; G0480; 81000-TC

== ENCOUNTER 2020-01-13 21:23 | Emergency (ER) | payer MEDICAID ==
[~2020-01-13] VITALS: Ht 167.6 cm; Wt 63.5 kg
--- NOTE | 2020-01-13 21:25 | NUR ---
TO ER BED 14 AMBULATORY C/O SI WITH PLAN TO CUT WRIST. PT DENIES HI. ADMITS TO METH USE YESTERDAY. PT AAOX4 NO ACUTE DISTRESS NOTED, RESP EVEN AND UNLABORED. PT GOWNED, ALL BELONGINS REMOVED, 1:1 SITTER AT BEDSIDE.
--- NOTE | 2020-01-13 21:45 | NUR ---
URINE SAMPLE COLLECTED AND SENT TO LAB.
[2020-01-13 21:57] LABS: APPEARANCE,URINE Clear (CLEAR); BILIRUBIN,URINE SMALL (NEGATIVE); BLOOD, URINE Negative Ery/uL (NEGATIVE); KETONES,URINE Negative (NEGATIVE); LEUKOCYTE ESTERASE ,URINE Negative (NEGATIVE); NITRITE, URINE Negative (NEGATIVE); PH,URINE 5.5 (5.0-8.0); PROTEIN,URINE 30 mg/dl (NEGATIVE); UGLUCOSE Negative (NEGATIVE); UROBILINOGEN,URINE 0.2 EU/dL (0.2)
[2020-01-13 21:59] LABS: COLOR,URINE DARK YELLOW (YELLOW)
[2020-01-13 22:12] LABS: BACTERIA,URINE Rare /HPF (None Seen); RBC,URINE NONE SEEN /HPF (0-2); SQUAMOUS EPITHELIAL CELL,UR Few /HPF (None Seen); WBC,URINE NONE SEEN /HPF (0-3)
[2020-01-13 22:12] LABS: BASOPHILS % (AUTO) 0.8 % (0.0-2.0); EOSINOPHILS % (AUTO) 2.8 % (0.0-6.0); HEMATOCRIT 42 % (39-51); HEMOGLOBIN 13.5 g/dL (13.5-17.5); LYMPHOCYTES # (AUTO) 1.7 /CMM (0.8-4.8); MEAN CORPUSCULAR HGB CONC 33 g/dl (31.0-36.0); MEAN CORPUSCULAR VOLUME 89 fL (80-96); MONOCYTES # (AUTO) 0.4 /CMM (0.1-1.30); NEUTROPHILS % (AUTO) 47.4 % (43.0-81.0); PLATELET COUNT (AUTO) 209 /CMM (150-450); RED BLOOD CELL COUNT(AUTO) 4.69 MIL/uL (4.5-6.0); WHITE BLOOD COUNT (AUTO) 4.3 K/uL (4.3-11.0)
[2020-01-13 22:20] LABS: CARBON DIOXIDE 32 mmol/L (21-32); CHLORIDE 102 mmol/L (98-107); CREATININE 1.1 mg/dL (0.6-1.3); GLUCOSE 85 mg/dL (74-106); POTASSIUM 4.1 mmol/L (3.5-5.1); SODIUM SERUM 140 mmol/L (136-145); UREA NITROGEN, BLOOD 23 mg/dL (7-18)
[2020-01-13 22:38] LABS: ALANINE AMINOTRANSFERASE 33 U/L (12-78); ALBUMIN 3.8 g/dL (3.4-5.0); ALCOHOL, BLOOD < 3 mg/dL (0-0); ALKALINE PHOSPHATASE 96 U/L (46-116); ASPARTATE AMINOTRANSFERASE 24 U/L (15-37); BILIRUBIN,DIRECT 0.4 mg/dL (0.0-0.2); BILIRUBIN,TOTAL 2.6 mg/dL (0.2-1.0)
[2020-01-13 22:40] LABS: ACETAMINOPHEN < 2 ug/ml (10-30); SALICYLATE < 0.2 mg/dL (2.8-20.0)
--- NOTE | 2020-01-13 23:14 | NUR ---
CLINICAL INFORMATION FAXED TO [facility]
--- NOTE | 2020-01-14 01:59 | NUR ---
PT AWAKE, EATING IN BED. VSS.
--- NOTE | 2020-01-14 02:51 | NUR ---
PT ASLEEP, NO ACUTE DISTRESS NOTED, RESP EVEN AND UNLABORED. CALL LIGHT WITHIN REACH. WILL CONTINUE TO MONITOR PT CLOSELY. 1:1 SITTER AT BEDSIDE FOR PT SAFETY.
--- NOTE | 2020-01-14 03:23 | NUR ---
PT SLEEPING COMFORTABLY. VSS. RR EVEN AND UNLABORED W/ NAD NOTED. SITTER AT BEDSIDE FOR SAFETY. WILL CONTINUE TO MONITOR
--- NOTE | 2020-01-14 03:26 | NUR ---
PER SPEEDY FROM [facility], NO BEDS AVAILABLE AT THIS TIME
--- NOTE | 2020-01-14 04:39 | NUR ---
PT SLEEPING COMFORTABLY. VSS. RR EVEN AND UNLABORED W/ NAD NOTED. SITTER AT BEDSIDE FOR SAFETY. WILL CONTINUE TO MONITOR
--- NOTE | 2020-01-14 06:49 | NUR ---
PT SLEEPING COMFORTABLY. VSS. RR EVEN AND UNLABORED W/ NAD NOTED. SITTER AT BEDSIDE FOR SAFETY. WILL CONTINUE TO MONITOR
--- NOTE | 2020-01-14 07:09 | NUR ---
[facility] CALLED TO GIVE TRANSFER INFO. PT GOING TO [facility]. DR. ROGEL AND DR. SIMPSON ARE THE ACCEPTING. NUMBER FOR REPORT [phone] EXT. [phone] OR [phone].
--- NOTE | 2020-01-14 07:16 | NUR ---
PER [facility], CALL FOR REPORT FOR ATLEAST HALF AN HOUR
--- NOTE | 2020-01-14 07:18 | NUR ---
CALLED [facility] FOR TRANSPORT TO [facility]. ETA 45 MINUTES.
[2020-01-14 08:18] VITALS: BP 122/77
--- NOTE | 2020-01-14 08:20 | NUR ---
REPORT TO GREG PÉREZ AT [facility]. TRANSFERED IN STABLE CONDITION.
== END 2020-01-14 08:22 ==
LOC: ER 21:24
DX: F19.10 Other psychoactive substance abuse, uncomplicated (principal); R45.851 Suicidal ideations; F20.9 Schizophrenia, unspecified; Z88.8 Allergy status to other drugs, medicaments and biological substances; Z59.0 Homelessness; Z79.899 Other long term (current) drug therapy
CPT/HCPCS: 36415; 80048; 80076; 80305; 80307; 80329; 81001; 85025; 99285; G0480; 81000-TC

== ENCOUNTER 2020-01-25 18:25 | Emergency (ER) | payer MEDICAID ==
[~2020-01-25] VITALS: Ht 167.6 cm; Wt 64.4 kg
[2020-01-25 18:59] LABS: BASOPHILS # (AUTO) 0.1 /CMM (0.0-0.2); BASOPHILS % (AUTO) 0.9 % (0.0-2.0); EOSINOPHILS % (AUTO) 0.5 % (0.0-6.0); HEMATOCRIT 40 % (39-51); HEMOGLOBIN 13.4 g/dL (13.5-17.5); LYMPHOCYTES # (AUTO) 1.5 /CMM (0.8-4.8); LYMPHOCYTES % (AUTO) 23.3 % (20.0-44.0); MEAN CORPUSCULAR HGB CONC 34 g/dl (31.0-36.0); MEAN CORPUSCULAR VOLUME 87 fL (80-96); MONOCYTES # (AUTO) 0.6 /CMM (0.1-1.30); MONOCYTES % (AUTO) 8.4 % (2.0-12.0); NEUTROPHILS # (AUTO) 4.4 /CMM (1.8-8.9); NEUTROPHILS % (AUTO) 66.9 % (43.0-81.0); PLATELET COUNT (AUTO) 280 /CMM (150-450); RED BLOOD CELL COUNT(AUTO) 4.57 MIL/uL (4.5-6.0); WHITE BLOOD COUNT (AUTO) 6.6 K/uL (4.3-11.0)
[2020-01-25] MEDS ORDERED: LORAZEPAM 1 MG TABLET PO ONE (19:00)
--- NOTE | 2020-01-25 19:04 | NUR ---
Took over pt care. Pt AAOX4. BIBRA60 from [facility] acting bizzare, paranoid. While assessing the patient he c/o headache and admits meth use 4 hrs ago. pt placed on monitor and pulse ox. vss. No acute distress noted. Pt cooeprative.
--- NOTE | 2020-01-25 19:05 | NUR ---
Pt stating he is suicidal and has plan to cut his wrist. Pt placed in gown, on monitor, and pulse ox. VSS. Belonings placed in locker. Sitter at bedside.
[2020-01-25 19:09] LABS: CALCIUM, SERUM 9.5 mg/dL (8.5-10.1); CARBON DIOXIDE 22 mmol/L (21-32); CHLORIDE 109 mmol/L (98-107); CREATININE 1.5 mg/dL (0.6-1.3); GLUCOSE 114 mg/dL (74-106); POTASSIUM 3.9 mmol/L (3.5-5.1); SODIUM SERUM 145 mmol/L (136-145); UREA NITROGEN, BLOOD 25 mg/dL (7-18)
[2020-01-25 19:15] LABS: ALANINE AMINOTRANSFERASE 36 U/L (12-78); ALBUMIN 4.6 g/dL (3.4-5.0); ALCOHOL, BLOOD < 3 mg/dL (0-0); ALKALINE PHOSPHATASE 105 U/L (46-116); ASPARTATE AMINOTRANSFERASE 40 U/L (15-37); BILIRUBIN,DIRECT 0.3 mg/dL (0.0-0.2); BILIRUBIN,TOTAL 1.7 mg/dL (0.2-1.0)
[2020-01-25 19:23] LABS: ACETAMINOPHEN < 2 ug/ml (10-30); SALICYLATE < 0.2 mg/dL (2.8-20.0)
[2020-01-25] MEDS ORDERED: LORAZEPAM 1 MG TABLET ONE (19:24)
--- NOTE | 2020-01-25 19:33 | NUR ---
URINE SENT TO LAB
[2020-01-25 19:46] LABS: APPEARANCE,URINE Clear (CLEAR); BILIRUBIN,URINE SMALL (NEGATIVE); BLOOD, URINE Negative Ery/uL (NEGATIVE); COLOR,URINE Yellow (YELLOW); KETONES,URINE Trace (NEGATIVE); LEUKOCYTE ESTERASE ,URINE Negative (NEGATIVE); NITRITE, URINE Negative (NEGATIVE); PH,URINE 5.5 (5.0-8.0); PROTEIN,URINE 30 mg/dl (NEGATIVE); UGLUCOSE Negative (NEGATIVE); UROBILINOGEN,URINE 0.2 EU/dL (0.2)
[2020-01-25 20:07] LABS: BACTERIA,URINE Rare /HPF (None Seen); RBC,URINE NONE SEEN /HPF (0-2); SQUAMOUS EPITHELIAL CELL,UR Few /HPF (None Seen); WBC,URINE NONE SEEN /HPF (0-3)
[2020-01-25] MEDS ORDERED: OLANZAPINE 10 MG VIAL IM ONE ×2 (20:44→21:00)
--- NOTE | 2020-01-25 22:31 | NUR ---
PT RESTING COMFORTABLY IN BED, CALM AND COOPERATIVE. VITAL SIGNS STABLE. SITTER AT BEDSIDE. WILL CONTINUE TO MONITOR
--- NOTE | 2020-01-25 22:46 | NUR ---
CLINICAL INFORMATION FAXED TO [facility]
--- NOTE | 2020-01-26 00:57 | NUR ---
[facility] ID UNIT [id number] REPORT NUMBER [id number] Addendum: 01/26/20 at 0109 by MYRA PT [facility] NUMBER FOR REPORT: [phone]
--- NOTE | 2020-01-26 01:16 | NUR ---
CALLED CALL THE [facility] FOR TRANSPORTATION. ETA [phone]
[2020-01-26 01:55] VITALS: BP 127/75
--- NOTE | 2020-01-26 02:05 | NUR ---
cookie mixer helper FROM [employer] PICKED UP THE PT VIA [facility] IN [facility]. ALL BELONGINGS WERE PICKED UP BY THE PT.
== END 2020-01-26 02:07 | disposition short-term general hospital (02) ==
LOC: ER 18:27
DX: F29 Unspecified psychosis not due to a substance or known physiological condition (principal); F19.10 Other psychoactive substance abuse, uncomplicated; N28.9 Disorder of kidney and ureter, unspecified; R94.5 Abnormal results of liver function studies; D64.9 Anemia, unspecified; F20.9 Schizophrenia, unspecified; Z88.8 Allergy status to other drugs, medicaments and biological substances; Z59.0 Homelessness
CPT/HCPCS: 36415; 80048; 80076; 80305; 80307; 80329; 81001; 82550; 85025; 96372; 99285; G0480; J3490; 81000-TC; 82553

== ENCOUNTER 2020-02-01 01:53 | Emergency (ER) | payer MEDICAID ==
[~2020-02-01] VITALS: Ht 167.6 cm; Wt 63.5 kg
--- NOTE | 2020-02-01 02:26 | NUR ---
CALLED FOR TRIAGE. NO RESPONSE
--- NOTE | 2020-02-01 03:00 | NUR ---
NOW PT REPORTS SI WITH PLAN TO CUT WRIST. LILIANA JUNG.
--- NOTE | 2020-02-01 03:01 | NUR ---
PT CHANGED INTO GOWN, BELONGINGS PLACED TO LOCKER, SUICIDE PRECAUTIONS IMPLEMENTED. PT CONNECTED TO THE MONITOR AND POX. SITTER AT BEDSIDE FOR SAFETY.
[2020-02-01 03:04] LABS: BASOPHILS % (AUTO) 0.6 % (0.0-2.0); HEMATOCRIT 47 % (39-51); HEMOGLOBIN 15.4 g/dL (13.5-17.5); LYMPHOCYTES # (AUTO) 1.7 /CMM (0.8-4.8); LYMPHOCYTES % (AUTO) 23.9 % (20.0-44.0); MEAN CORPUSCULAR HGB CONC 33 g/dl (31.0-36.0); MEAN CORPUSCULAR VOLUME 87 fL (80-96); MONOCYTES # (AUTO) 0.5 /CMM (0.1-1.30); MONOCYTES % (AUTO) 7.2 % (2.0-12.0); NEUTROPHILS # (AUTO) 4.7 /CMM (1.8-8.9); NEUTROPHILS % (AUTO) 67.3 % (43.0-81.0); PLATELET COUNT (AUTO) 269 /CMM (150-450); RED BLOOD CELL COUNT(AUTO) 5.32 MIL/uL (4.5-6.0); WHITE BLOOD COUNT (AUTO) 6.9 K/uL (4.3-11.0)
[2020-02-01 03:14] LABS: CALCIUM, SERUM 9.5 mg/dL (8.5-10.1); CARBON DIOXIDE 32 mmol/L (21-32); CHLORIDE 101 mmol/L (98-107); GLUCOSE 102 mg/dL (74-106); POTASSIUM 4.2 mmol/L (3.5-5.1); SODIUM SERUM 142 mmol/L (136-145); UREA NITROGEN, BLOOD 21 mg/dL (7-18)
[2020-02-01 03:17] LABS: ALANINE AMINOTRANSFERASE 38 U/L (12-78); ALBUMIN 4.5 g/dL (3.4-5.0); ALCOHOL, BLOOD < 3 mg/dL (0-0); ALKALINE PHOSPHATASE 96 U/L (46-116); ASPARTATE AMINOTRANSFERASE 26 U/L (15-37); BILIRUBIN,DIRECT 0.3 mg/dL (0.0-0.2); BILIRUBIN,TOTAL 1.7 mg/dL (0.2-1.0); TOTAL PROTEIN, SERUM 8.1 g/dL (6.4-8.2)
[2020-02-01 03:21] LABS: ACETAMINOPHEN 0 ug/ml (10-30); SALICYLATE < 0.2 mg/dL (2.8-20.0)
[2020-02-01 03:37] LABS: APPEARANCE,URINE CLEAR (CLEAR); BILIRUBIN,URINE NEGATIVE (NEGATIVE); BLOOD, URINE NEGATIVE Ery/uL (NEGATIVE); COLOR,URINE YELLOW (YELLOW); KETONES,URINE NEGATIVE (NEGATIVE); LEUKOCYTE ESTERASE ,URINE NEGATIVE (NEGATIVE); NITRITE, URINE NEGATIVE (NEGATIVE); PROTEIN,URINE NEGATIVE (NEGATIVE); UGLUCOSE NEGATIVE (NEGATIVE); UROBILINOGEN,URINE 0.2 EU/dL (0.2)
--- NOTE | 2020-02-01 04:19 | NUR ---
CLINICAL FAXED TO [facility] FOR VOLUNTARY ADMISSION.
--- NOTE | 2020-02-01 04:57 | NUR ---
SPOKE W/ AMANDA FROM [facility] FOR ADDITIONAL CLINICAL INFORMATION. PER AMANDA, SHE WILL CALL BACK REGARDING PT'S ADMISSION.
--- NOTE | 2020-02-01 05:16 | NUR ---
"I TOOK A HIT OF HEROIN YESTERDAY MORNING" WHEN ASK IF HE TOOK ANY NORCO, FENTANYL OR HEROIN.
--- NOTE | 2020-02-01 05:21 | NUR ---
PER [facility] INTAKE (AMANDA) WE HAVE TO WAIT 48 HRS FOR THEM TO ACCEPT PT DUE TO OPIATE (+). INTAKE WILL CALL BACK IN 48 HRS TO F/U.
--- NOTE | 2020-02-01 05:21 | NUR ---
Note jennifer in EDM - 02/01/20 at 0533 by KACIE [facility] (AMANDA) WE HAVE TO WAIT 4 HRS FOR THEM TO ACCEPT PT DUE TO OPIATE (+). INTAKE WILL CALL BACK IN 4 HRS TO F/U.
--- NOTE | 2020-02-01 07:30 | NUR ---
ASSESSED PT ON BED, AAOX4, NOT IN RESPIRATORY DISTRESS, V/S STABLE, KEPT RESTED AND COMFORTABLE, WILL CONTINUE TO MONITOR.
--- NOTE | 2020-02-01 08:15 | NUR ---
FOOD TRAY PROVIDED.
--- NOTE | 2020-02-01 09:47 | NUR ---
SOCIAL WORK NOTE: SW met with 45 year old homeless male who presents to the ED complaining of eye irritation. Upon evaluation by MD, pt states that he is having psychiatric problems and states he is having suicidal ideation with a plan to cut his wrist. Upon social work evaluation, pt presents laying in bed, pt appears paranoid and appears to be responding to internal stimuli. Pt is disheveled, unkempt, and malodorous. Pt is having difficulty formulating words and having a difficult time answering questions and states, "I'm having trouble thinking clearly." Pt states he is homeless and could not identify his current place of dwelling. Pt states he is hearing voices and states he wishes to kill himself. Pt agrees to go to [facility]. Pt also requested psych medication and states he was prescribed Zyprexa but states he has not taken it and states he also takes Gabapentin. Pt admits to using opiates and states he used Heroin early this morning. Pt was referred to [facility] this morning by JUAN PÉREZ followed up with Jerson shutdown coordinator at [facility] [phone] who states pts referral is pending and being reviewed due to pts positive opiate drug screen.
--- NOTE | 2020-02-01 10:08 | NUR ---
accepted at [facility] room [address] Ng/Dr. Chen
--- NOTE | 2020-02-01 10:09 | NUR ---
PSYCH REFERRAL FOLLOW UP: JUAN spoke with Jerson, residency program coordinator at [facility] [phone] who confirmed pt has been accepted and is just pending review. Pt has been assigned to room 612A and accepting psychiatrist is Dr. Jordan and Product Development Coordinator is Dr. Childs. Per Jerson, once reviewed their intake team will call ED personnel clerks supervisor for nurse to nurse report.
--- NOTE | 2020-02-01 10:30 | NUR ---
[facility] [phone]. ETA IS 1130 PER NATHAN.
[2020-02-01 11:19] VITALS: BP 143/82
--- NOTE | 2020-02-01 11:20 | NUR ---
NUMBER FOR REPORT IN [facility] [phone] EX [phone]
--- NOTE | 2020-02-01 11:28 | NUR ---
CALLED [facility] FOR RESPORT RN NOT AVAILABLE. PER RN ALECIA WILL CALL BACK AFTER 10MINS.
--- NOTE | 2020-02-01 11:45 | NUR ---
REPORT GIVEN TO BETO HILL OF [facility] FOR STEFANIE.
--- NOTE | 2020-02-01 11:50 | NUR ---
REPORT GIVEN TO EMT FOR PT TRANSFER TO [facility].
== END 2020-02-01 12:04 ==
LOC: ER 01:53
DX: F19.10 Other psychoactive substance abuse, uncomplicated (principal); F15.10 Other stimulant abuse, uncomplicated; R44.0 Auditory hallucinations; F17.200 Nicotine dependence, unspecified, uncomplicated; H11.003 Unspecified pterygium of eye, bilateral; Z88.8 Allergy status to other drugs, medicaments and biological substances; Z59.0 Homelessness; Z79.899 Other long term (current) drug therapy
CPT/HCPCS: 36415; 80048; 80076; 80305; 80307; 80329; 81001; 85025; 99285; 99406; G0480; 81000-TC

== ENCOUNTER 2020-03-12 00:08 | Emergency (ER) | payer MEDICAID ==
[~2020-03-12] VITALS: Ht 167.6 cm; Wt 63.5 kg
--- NOTE | 2020-03-12 00:14 | NUR ---
PATIENT CAME TO ER BED 12 C/O SUICIDAL IDEATION. PATIENT STATES THAT HE PLANS TO CUT HIS WRISTS. AAOX3. NO SOB. BREATHING EVENLY AND UNLABORED ON ROOM AIR. CONNECTED TO MONITOR WITH SITTER AT BEDSIDE. PATIENT'S BELONGINGS ARE MOVED INTO A SAFE LOCKER. PATIENT IS CHANGED INTO A CLEAN GOWN.
--- NOTE | 2020-03-12 00:16 | NUR ---
IRON MELTER AT BEDSIDE FOR DRAWING BLOOD.
[2020-03-12 00:43] LABS: BASOPHILS % (AUTO) 0.7 % (0.0-2.0); EOSINOPHILS % (AUTO) 1.5 % (0.0-6.0); HEMATOCRIT 47 % (39-51); HEMOGLOBIN 15.7 g/dL (13.5-17.5); LYMPHOCYTES # (AUTO) 2.2 /CMM (0.8-4.8); LYMPHOCYTES % (AUTO) 42.1 % (20.0-44.0); MEAN CORPUSCULAR HGB CONC 34 g/dl (31.0-36.0); MEAN CORPUSCULAR VOLUME 88 fL (80-96); MONOCYTES # (AUTO) 0.4 /CMM (0.1-1.30); MONOCYTES % (AUTO) 7.4 % (2.0-12.0); NEUTROPHILS # (AUTO) 2.5 /CMM (1.8-8.9); NEUTROPHILS % (AUTO) 48.3 % (43.0-81.0); PLATELET COUNT (AUTO) 288 /CMM (150-450); RED BLOOD CELL COUNT(AUTO) 5.33 MIL/uL (4.5-6.0); WHITE BLOOD COUNT (AUTO) 5.2 K/uL (4.3-11.0)
[2020-03-12 00:49] LABS: CALCIUM, SERUM 9.5 mg/dL (8.5-10.1); CARBON DIOXIDE 28 mmol/L (21-32); CHLORIDE 103 mmol/L (98-107); CREATININE 1.2 mg/dL (0.6-1.3); GLUCOSE 84 mg/dL (74-106); POTASSIUM 3.9 mmol/L (3.5-5.1); SODIUM SERUM 139 mmol/L (136-145); UREA NITROGEN, BLOOD 10 mg/dL (7-18)
[2020-03-12 00:55] LABS: ALANINE AMINOTRANSFERASE 25 U/L (12-78); ALBUMIN 4.6 g/dL (3.4-5.0); ALCOHOL, BLOOD 25 mg/dL (0-0); ALKALINE PHOSPHATASE 109 U/L (46-116); ASPARTATE AMINOTRANSFERASE 21 U/L (15-37); BILIRUBIN,DIRECT 0.3 mg/dL (0.0-0.2); BILIRUBIN,TOTAL 1.6 mg/dL (0.2-1.0); TOTAL PROTEIN, SERUM 8.1 g/dL (6.4-8.2)
--- NOTE | 2020-03-12 01:18 | NUR ---
PATIENT IS AMBULATORY WITH A STEADY GAIT TO THE RESTROOM. PATIENT ATTEMPTED TO PROVIDE URINE, BUT UNABLE TO PROVIDE URINE AT THIS TIME. PT WILL TRY AGAIN.
[2020-03-12 01:49] LABS: ACETAMINOPHEN 0 ug/ml (10-30); SALICYLATE < 0.2 mg/dL (2.8-20.0)
--- NOTE | 2020-03-12 03:29 | NUR ---
URINE COLLECTED. CALLED LAB FOR COUNTERPERSON
[2020-03-12 03:36] LABS: APPEARANCE,URINE Clear (CLEAR); BILIRUBIN,URINE Negative (NEGATIVE); BLOOD, URINE Negative Ery/uL (NEGATIVE); COLOR,URINE Dark (YELLOW); KETONES,URINE Negative (NEGATIVE); LEUKOCYTE ESTERASE ,URINE Negative (NEGATIVE); NITRITE, URINE Negative (NEGATIVE); PROTEIN,URINE Trace mg/dl (NEGATIVE); UGLUCOSE Negative (NEGATIVE); UROBILINOGEN,URINE 0.2 EU/dL (0.2)
--- NOTE | 2020-03-12 07:15 | NUR ---
AMANDA FROM [facility]; CONFIMRED REC'D PACKET
--- NOTE | 2020-03-12 09:12 | NUR ---
Pt resting comfortably, no acute s/s of distress noted at this time. Will continue with plan to monitor. Pending placement at [facility] psych facility.
[2020-03-12] MEDS ORDERED: IBUPROFEN 600 MG TABLET PO ONE ×2 (10:25→10:30)
--- NOTE | 2020-03-12 13:50 | NUR ---
Patien asleep arousable non distress @ this time continue to monitor
--- NOTE | 2020-03-12 17:09 | NUR ---
Patient awake no agitaion no hallucination @ this time he does follow command sitter @ bedside awaiting for bed
--- NOTE | 2020-03-12 18:33 | NUR ---
CALLED [facility] FOR UPDATE. STATED NO BEDS UNTIL DISCHARGES TOMORROW MORNING.
--- NOTE | 2020-03-12 21:18 | NUR ---
PT RESTING COMFORTABLY IN BED. VITAL SIGNS STABLE. NO ACUTE DISTRESS NOTED AT THIS TIME. SITTER AT BEDSIDE, WILL CONTINUE TO MONITOR
--- NOTE | 2020-03-13 00:54 | NUR ---
PT IN BED COMFORTABLY. VSS.
--- NOTE | 2020-03-13 04:45 | NUR ---
PT RESTING COMFORTABLY IN BED. VITAL SIGNS STABLE. NO ACUTE DISTRESS NOTED AT THIS TIME. WILL CONTINUE TO MONITOR
--- NOTE | 2020-03-13 05:53 | NUR ---
PATIENT IS AWAKE AND RESTING. NOT IN ANY DISTRESS. BREATHING EVENLY AND UNLABORED ON ROOM AIR. CONNECTED TO MONITOR. SITTER AT BEDSIDE.
--- NOTE | 2020-03-13 06:15 | NUR ---
PT AWAKE IN BED WATCHING TV. PROVIDED WITH WATER.
--- NOTE | 2020-03-13 06:54 | NUR ---
SPOKE WITH AMANDA FROM [facility], STILL NO BEDS AVAILABLE AT THIS TIME
--- NOTE | 2020-03-13 07:05 | NUR ---
assume pt care. pt is awake, resting in bed. watching tv. breakfast tray was provided. sitter at bedside. will continue to monitor.
--- NOTE | 2020-03-13 08:41 | NUR ---
MECHANICAL TECHNICAL SERVICE SPECIALIST contacted Jerson at [facility] to f/u regarding bed availability. Per Jerson, they will have discharges at noon and will be able to accept pt after 12PM. MECHANICAL TECHNICAL SERVICE SPECIALIST updated ED CRN Gener with aforementioned information.
--- NOTE | 2020-03-13 10:09 | NUR ---
ACCEPTED BY MENDEZ FINNEY/VIKAS TO [facility],REPORT TO [phone]
--- NOTE | 2020-03-13 10:17 | NUR ---
report given Karina PÉREZ for camryn
--- NOTE | 2020-03-13 10:37 | NUR ---
ARRANGED BLS TRANSPORT THROUGH [facility], SPOKE TO PANCHO MUNIZ 1200, CONFIRMATION NUMBER:[id number]
--- NOTE | 2020-03-13 10:44 | NUR ---
[facility] ETA 1300
--- NOTE | 2020-03-13 13:15 | NUR ---
GOT A CALL FROM [facility]. ETA DELAYED 45 MINUTES.
[2020-03-13 14:05] VITALS: BP 118/81
--- NOTE | 2020-03-13 14:06 | NUR ---
patient picked up by private ambulance going to [facility] ER in no distress, denies any pain at this time, nor chest pain. All belongings released to patient.
== END 2020-03-13 14:06 ==
LOC: ER 00:14
DX: R45.851 Suicidal ideations (principal); F19.10 Other psychoactive substance abuse, uncomplicated; F20.9 Schizophrenia, unspecified; Z88.8 Allergy status to other drugs, medicaments and biological substances; Z59.0 Homelessness; Z79.899 Other long term (current) drug therapy; Z04.6 Encounter for general psychiatric examination, requested by authority
CPT/HCPCS: 36415; 80048; 80076; 80305; 80307; 80329; 81001; 85025; 99285; G0480; 81000-TC

== ENCOUNTER 2020-06-21 19:38 | Emergency (ER) | payer MEDICAID ==
[~2020-06-21] VITALS: Ht 167.6 cm; Wt 63.5 kg
--- NOTE | 2020-06-21 19:40 | NUR ---
PT CAME TO THE ED C/O SI W/ CUT WRIST. PT DENIES ANY HI. PT AAOX4,RESPIRATIONS EVEN AND UNLABORED ON RA W/ NAD NOTED. PT CONNECTED TO THE MONITOR AND POX. PT CHANGED TO GOWN, BELONGINGS PLACED TO LOCKER. SUICIDE PRECAUTIONS IMPLEMENTED. SITTER AT BEDSIDE FOR SAFETY.
--- NOTE | 2020-06-21 20:00 | NUR ---
URINE COLLECTED AND SENT TO LAB
[2020-06-21 20:20] LABS: BASOPHILS % (AUTO) 0.7 % (0.0-2.0); EOSINOPHILS % (AUTO) 0.9 % (0.0-6.0); HEMATOCRIT 43 % (39-51); HEMOGLOBIN 14.5 g/dL (13.5-17.5); LYMPHOCYTES # (AUTO) 1.8 /CMM (0.8-4.8); LYMPHOCYTES % (AUTO) 30.9 % (20.0-44.0); MEAN CORPUSCULAR HGB CONC 34 g/dl (31.0-36.0); MEAN CORPUSCULAR VOLUME 87 fL (80-96); MONOCYTES # (AUTO) 0.4 /CMM (0.1-1.30); NEUTROPHILS # (AUTO) 3.6 /CMM (1.8-8.9); NEUTROPHILS % (AUTO) 60.5 % (43.0-81.0); PLATELET COUNT (AUTO) 304 /CMM (150-450)
[2020-06-21 20:29] LABS: CALCIUM, SERUM 9.1 mg/dL (8.5-10.1); CARBON DIOXIDE 25 mmol/L (21-32); CHLORIDE 102 mmol/L (98-107); CREATININE 1.1 mg/dL (0.6-1.3); GLUCOSE 110 mg/dL (74-106); POTASSIUM 3.8 mmol/L (3.5-5.1); SODIUM SERUM 138 mmol/L (136-145); UREA NITROGEN, BLOOD 15 mg/dL (7-18)
[2020-06-21 20:35] LABS: ALANINE AMINOTRANSFERASE 30 U/L (12-78); ALBUMIN 4.3 g/dL (3.4-5.0); ALCOHOL, BLOOD < 3 mg/dL (0-0); ALKALINE PHOSPHATASE 113 U/L (46-116); ASPARTATE AMINOTRANSFERASE 26 U/L (15-37); BILIRUBIN,DIRECT 0.4 mg/dL (0.0-0.2); BILIRUBIN,TOTAL 2.6 mg/dL (0.2-1.0)
[2020-06-21] MEDS ORDERED: OLANZAPINE 5 MG TABLET ONE (21:00)
[2020-06-21] MEDS: OLANZAPINE 5 MG TABLET PO ONE (21:08)
[2020-06-21 21:28] LABS: APPEARANCE,URINE Slightly Cloudy (CLEAR); BILIRUBIN,URINE Negative (NEGATIVE); BLOOD, URINE Negative Ery/uL (NEGATIVE); COLOR,URINE Yellow (YELLOW); KETONES,URINE Negative (NEGATIVE); LEUKOCYTE ESTERASE ,URINE Negative (NEGATIVE); NITRITE, URINE Negative (NEGATIVE); PH,URINE 5.5 (5.0-8.0); PROTEIN,URINE Trace mg/dl (NEGATIVE); UGLUCOSE Negative (NEGATIVE); UROBILINOGEN,URINE 0.2 EU/dL (0.2)
[2020-06-21 21:45] LABS: BACTERIA,URINE Few /HPF (None Seen); RBC,URINE NONE SEEN /HPF (0-2); SQUAMOUS EPITHELIAL CELL,UR Few /HPF (None Seen); WBC,URINE 0-2 /HPF (0-3)
[2020-06-21 21:46] LABS: MUCUS,URINE Moderate /LPF (None Seen); URINE AMORPHOUS URATE Many /HPF (None Seen)
[2020-06-21 22:53] LABS: ACETAMINOPHEN 0 ug/ml (10-30); SALICYLATE < 0.2 mg/dL (2.8-20.0)
--- NOTE | 2020-06-21 23:33 | NUR ---
PT RESTING COMFORTABLY IN BED. VSS. NO ACUTE DISTRESS NOTED. WILL CONTINUE TO MONITOR. SITTER AT BEDSIDE FOR SAFETY
--- NOTE | 2020-06-22 00:22 | NUR ---
CLINICAL FAXED TO [facility] FOR VOLUNTARY ADMISSION.
--- NOTE | 2020-06-22 00:44 | NUR ---
PT RESTING COMFORTABLY IN BED. VSS. NO ACUTE DISTRESS NOTED. SITTER AT BEDSIDE FOR SAFETY. CALL LIGHT WITHIN REACH
--- NOTE | 2020-06-22 01:59 | NUR ---
PT ASLEEP, NO ACUTE DISTRESS NOTED, RESP EVEN AND UNLABORED. NO PAIN OR DISCOMFORT NOTED. CALL LIGHT WIHTIN REACH. WILL CONTINUE TO MONITOR PT CLOSELY. 1:1 SITTER REMAINS AT BEDSIDE.
--- NOTE | 2020-06-22 06:12 | NUR ---
PT ASLEEP IN BED. VSS. NO ACUTE DISTRESS NOTED. SITTER AT BEDSIDE FOR SAFETY. CALL LIGHT WITHIN REACH
--- NOTE | 2020-06-22 08:44 | NUR ---
This SW contacted Jerson at [facility] regarding patient's status. Jerson informed this SW that the patient's clinicals are currently under review and [facility] to call Emergency Room staff after [facility] discharge this morning. SW to remain available for all needs regarding this patient.
--- NOTE | 2020-06-22 12:02 | NUR ---
COVID RESULT: NEGATIVE
--- NOTE | 2020-06-22 13:16 | NUR ---
REPORT GIVEN TO BRAXTON PÉREZ BOX TRUCK OWNER OPERATOR
--- NOTE | 2020-06-22 13:22 | NUR ---
CALLED [facility] FOR TRANSPORT TO [facility]. ETA 1500.
[2020-06-22 15:16] VITALS: BP 134/86
--- NOTE | 2020-06-22 15:16 | NUR ---
PATIENT PICKED UP BY [facility] [address] IN STABLE CONDITION. PATIENT WILL BE TRANSFERRED TO [facility]. CLINICALS PROVIDED TO EMS TO BE GIVEN TO THE FACILITY.
== END 2020-06-22 15:17 ==
LOC: ER 19:38
DX: R45.851 Suicidal ideations (principal); R17 Unspecified jaundice; F20.9 Schizophrenia, unspecified; Z59.0 Homelessness; Z87.820 Personal history of traumatic brain injury; Z20.828 Contact with and (suspected) exposure to other viral communicable diseases
CPT/HCPCS: 36415; 80048; 80076; 80305; 80307; 80329; 81001; 85025; 87426; 99285; C9803; G0480; 81000-TC

== ENCOUNTER 2020-08-25 00:50 | Emergency (ER) | payer MEDICAID ==
[~2020-08-25] VITALS: Ht 167.6 cm; Wt 63.5 kg
--- NOTE | 2020-08-25 01:25 | NUR ---
BIBS FOR C/O SI PLANNING TO CUT HIS WRIST. PT DENIED HI. PT AMBULATORY TO BED 15. ON SI PRECAUTIONS. GOWNED UP AND ALL BELONGINGS TAKEN AWAY IN SAFE BOX. PLACED ON A MONITOR W STABLE VS. WILL CONT TO MONITOR ,
--- NOTE | 2020-08-25 01:43 | NUR ---
PT CAME TO THE ER FOR SI W/ A PLAN TO CUT WRIST. PT DENIES HI. PT AAOX4, VSS, RESPIRATIONS EVEN AND UNLABORED ON RA W/ NAD NOTED. PT CHANGED INTO GOWN, BELONGINGS PLACED TO LOCKER, SUICIDE PRECAUTIONS IMPLEMENTED. SITTER AT BEDSIDE FOR SAFETY
--- NOTE | 2020-08-25 01:45 | NUR ---
SENIOR SQL DATABASE DEVELOPER AT BEDSIDE FOR SAFETY
[2020-08-25 01:50] LABS: BASOPHILS % (AUTO) 0.3 % (0.0-2.0); EOSINOPHILS % (AUTO) 0.2 % (0.0-6.0); HEMATOCRIT 48 % (39-51); HEMOGLOBIN 15.7 g/dL (13.5-17.5); LYMPHOCYTES # (AUTO) 1.7 /CMM (0.8-4.8); LYMPHOCYTES % (AUTO) 21.4 % (20.0-44.0); MEAN CORPUSCULAR HGB CONC 32 g/dl (31.0-36.0); MEAN CORPUSCULAR VOLUME 90 fL (80-96); MONOCYTES # (AUTO) 0.8 /CMM (0.1-1.30); MONOCYTES % (AUTO) 9.9 % (2.0-12.0); NEUTROPHILS # (AUTO) 5.5 /CMM (1.8-8.9); NEUTROPHILS % (AUTO) 68.2 % (43.0-81.0); PLATELET COUNT (AUTO) 297 /CMM (150-450)
[2020-08-25 01:53] LABS: BILIRUBIN,URINE SMALL (NEGATIVE); BLOOD, URINE Negative Ery/uL (NEGATIVE); COLOR,URINE YELLOW (YELLOW); LEUKOCYTE ESTERASE ,URINE Negative (NEGATIVE); NITRITE, URINE Negative (NEGATIVE); PH,URINE 5.5 (5.0-8.0); PROTEIN,URINE 30 mg/dl (NEGATIVE); UGLUCOSE Negative (NEGATIVE); UROBILINOGEN,URINE 0.2 EU/dL (0.2)
[2020-08-25 02:07] LABS: CALCIUM, SERUM 9.5 mg/dL (8.5-10.1); CARBON DIOXIDE 29 mmol/L (21-32); CHLORIDE 99 mmol/L (98-107); GLUCOSE 106 mg/dL (74-106); POTASSIUM 3.3 mmol/L (3.5-5.1); SODIUM SERUM 141 mmol/L (136-145); UREA NITROGEN, BLOOD 20 mg/dL (7-18)
[2020-08-25 02:10] LABS: ACETAMINOPHEN < 10 ug/ml (10-30); ALANINE AMINOTRANSFERASE 50 U/L (12-78); ALBUMIN 4.7 g/dL (3.4-5.0); ALCOHOL, BLOOD < 3 mg/dL (0-0); ALKALINE PHOSPHATASE 115 U/L (46-116); ASPARTATE AMINOTRANSFERASE 30 U/L (15-37); BILIRUBIN,DIRECT 0.4 mg/dL (0.0-0.2); BILIRUBIN,TOTAL 2.5 mg/dL (0.2-1.0); TOTAL PROTEIN, SERUM 8.6 g/dL (6.4-8.2)
--- NOTE | 2020-08-25 02:43 | NUR ---
CLINICALS AND FACESHEET WERE FAXED TO [facility] INTA[facility]
--- NOTE | 2020-08-25 03:01 | NUR ---
CALLED AMANDA AND VERIFIED THE RECEIPT OF CLINICAL INFO
[2020-08-25] MEDS ORDERED: POTASSIUM CHLORIDE 20 MEQ TAB.PRT.SR PO ONE ×2 (03:29→03:30)
--- NOTE | 2020-08-25 03:42 | NUR ---
ACCEPTING INFO LOBO PATEL FROM [facility]: PT GOT AQCCEPTED AT [facility], UNIT [address], BY DR FAUSTIN, # [phone]
--- NOTE | 2020-08-25 03:46 | NUR ---
[facility] ETA: 0700 , TRIP NUMBER: [id number]
[2020-08-25 03:58] LABS: BACTERIA,URINE Few /HPF (None Seen); HYALINE CASTS, URINE Few /LPF (None Seen); MUCUS,URINE Many /LPF (None Seen); RBC,URINE 0-2 /HPF (0-2); SQUAMOUS EPITHELIAL CELL,UR Few /HPF (None Seen); URINE AMORPHOUS URATE Moderate /HPF (None Seen); WBC,URINE 0-2 /HPF (0-3)
--- NOTE | 2020-08-25 05:06 | NUR ---
PT RESTING COMFORTABLY IN BED. VSS. NO ACUTE DISTRESS NOTED. SITTER AT BEDSIDE FOR SAFETY. WILL CONTINUE TO MONITOR PT
--- NOTE | 2020-08-25 05:45 | NUR ---
REPORT GIVEN TO BETO ALONSO FOR STEFANIE SCVN
--- NOTE | 2020-08-25 08:46 | NUR ---
No acute distress. Breakfast served ate 100%. Compliant/cooperative. [facility] here to greens picker pt for Voluntary Admit to [place] [facility]. Report to EMT Micheal
[2020-08-25 08:48] VITALS: BP 145/76
== END 2020-08-25 08:48 ==
LOC: ER 00:55
DX: R45.851 Suicidal ideations (principal); F15.10 Other stimulant abuse, uncomplicated; Z20.828 Contact with and (suspected) exposure to other viral communicable diseases; Z59.0 Homelessness; G62.9 Polyneuropathy, unspecified; F20.9 Schizophrenia, unspecified; Z79.899 Other long term (current) drug therapy; Z88.8 Allergy status to other drugs, medicaments and biological substances
CPT/HCPCS: 36415; 80048; 80076; 80299; 80307; 80320; 81001; 85025; 87426; 99285; C9803; G0480

== ENCOUNTER 2020-09-21 08:39 | Emergency (ER) | payer BC, MEDICAID ==
[~2020-09-21] VITALS: Ht 167.6 cm; Wt 63.5 kg
--- NOTE | 2020-09-21 08:40 | NUR ---
PT SELF PRESENTS TO ED C/O SUICIDAL IDEATION W/ PLAN TO "CUT WRIST." AND WANTS TO GO VOLUNTARY PSYCH ADMIT. PT SEEN IN ED MULTIPLE TIMESFOR SAME COMPLAINTS. STABLE VITALS. AWAITING MD YADAV.
--- NOTE | 2020-09-21 08:50 | NUR ---
DR BAINS AT BEDSIDE FOR EVAL.
--- NOTE | 2020-09-21 09:15 | NUR ---
VIDEO PLAYER MECHANIC AT BEDSIDE FOR BLOOD DRAW.
[2020-09-21 09:23] LABS: BASOPHILS % (AUTO) 0.4 % (0.0-2.0); EOSINOPHILS % (AUTO) 0.9 % (0.0-6.0); HEMATOCRIT 46 % (39-51); HEMOGLOBIN 15.3 g/dL (13.5-17.5); LYMPHOCYTES # (AUTO) 1.5 /CMM (0.8-4.8); LYMPHOCYTES % (AUTO) 20.2 % (20.0-44.0); MEAN CORPUSCULAR HGB CONC 34 g/dl (31.0-36.0); MEAN CORPUSCULAR VOLUME 87 fL (80-96); MONOCYTES # (AUTO) 0.5 /CMM (0.1-1.30); MONOCYTES % (AUTO) 7.2 % (2.0-12.0); NEUTROPHILS # (AUTO) 5.3 /CMM (1.8-8.9); NEUTROPHILS % (AUTO) 71.3 % (43.0-81.0); PLATELET COUNT (AUTO) 275 /CMM (150-450); RED BLOOD CELL COUNT(AUTO) 5.24 MIL/uL (4.5-6.0); WHITE BLOOD COUNT (AUTO) 7.5 K/uL (4.3-11.0)
[2020-09-21 09:26] LABS: CALCIUM, SERUM 9.4 mg/dL (8.5-10.1); CARBON DIOXIDE 31 mmol/L (21-32); CHLORIDE 100 mmol/L (98-107); GLUCOSE 111 mg/dL (74-106); POTASSIUM 3.9 mmol/L (3.5-5.1); SODIUM SERUM 139 mmol/L (136-145); UREA NITROGEN, BLOOD 15 mg/dL (7-18)
[2020-09-21 09:27] LABS: BILIRUBIN,URINE Negative (NEGATIVE); COLOR,URINE DARK YELLOW (YELLOW); LEUKOCYTE ESTERASE ,URINE Negative (NEGATIVE); NITRITE, URINE Negative (NEGATIVE); PH,URINE 5.5 (5.0-8.0); PROTEIN,URINE 30 mg/dl (NEGATIVE); UGLUCOSE Negative (NEGATIVE); UROBILINOGEN,URINE 0.2 EU/dL (0.2)
[2020-09-21 09:39] LABS: ALANINE AMINOTRANSFERASE 56 U/L (12-78); ALBUMIN 4.2 g/dL (3.4-5.0); ALCOHOL, BLOOD < 3 mg/dL (0-0); ALKALINE PHOSPHATASE 128 U/L (46-116); ASPARTATE AMINOTRANSFERASE 40 U/L (15-37); BILIRUBIN,DIRECT 0.2 mg/dL (0.0-0.2); BILIRUBIN,TOTAL 1.3 mg/dL (0.2-1.0); TOTAL PROTEIN, SERUM 8.5 g/dL (6.4-8.2)
[2020-09-21 09:41] LABS: ACETAMINOPHEN 0 ug/ml (10-30)
[2020-09-21 09:52] LABS: BACTERIA,URINE Few /HPF (None Seen); RBC,URINE 0-2 /HPF (0-2); SQUAMOUS EPITHELIAL CELL,UR Few /HPF (None Seen); WBC,URINE 0-2 /HPF (0-3)
--- NOTE | 2020-09-21 11:57 | NUR ---
Social Work Consult: Social consult was requested by ER staff Nazario for a 45 year old male homeless pt in the waiting room presenting with suicidal ideation. Pt appears to be alert and oriented x4 (self, place, situation, time). Pt appears to be anxious and in a distressed state. Pt appears to be delusional with a history of Schizophrenia. Pt states that he is suffering from depression. Pt denies any homicidal ideation. Pt is unable to maintain appropriate eye contact and has delayed responses. Pt claims to have used substances this morning (methamphetamines). Pt states that he cut his wrist 6 months ago but no new attempts recently. Patient also states that he is on psychotropic medications (Remeron) but has not been compliant with medications. Pt is not able to identify any support systems. Pt has proper attire but requires cleaning. Pt also needs grooming (dirty and long nails) and appears to be malodorous. Pt states that he does not require assistance with medications. Pt appears to be ambulatory without any need of assistance. Pt agrees to voluntary psychiatric hospital admission. JUAN gave homeless resources which included shelters, showers, food ashby, meals, health clinics, mental health clinics, and substance abuse referrals. JUAN provided the [phone] [facility] Program list. SW referred pt to custodial [place] of the [facility] [address] [place] [address] as nearest location. Homeless resources also include Mental health and health clinics include [facility] [address] [place] [address] ([phone]). [facility] [address] [place]. [address] ([phone]); Medical clinics: [facility] [address], [place], [place]. ([phone]); [facility] [address], [address], [place]. JUAN provided the pt with a brief substance abuse intervention with referrals to substance abuse programs; [facility] Substance Abuse Self-help line ([phone]); [facility] [address] [place] [address] ([phone]); [facility] [address] [place] [address] ([phone]); [facility] ([phone]; [facility] ([phone]); [facility] ([phone]); [facility] ([phone]). Pt was given the proper resources needed to find custodial placement. Plan: JUAN will refer pt to [facility] regarding bed availability for voluntary psychiatric hospitalization. JUAN was informed that the pt's referral is being reviewed by staff, in which a bed is being held pending on review. JUAN had the pt sign a homeless waiver and a copy will be placed in the pt's chart.
[2020-09-21 12:05] VITALS: BP 136/70
--- NOTE | 2020-09-21 13:24 | NUR ---
PT ACCEPTTED @ [facility] UNDER THE CARE OF DR. NAVARRO AND DR. ADORNO. CALL [phone] FOR REPORT
--- NOTE | 2020-09-21 15:04 | NUR ---
[facility] ETA 1600
--- NOTE | 2020-09-21 15:59 | NUR ---
REPORT GIVEN TO NURSING MITHCEL HAYES AT [facility]. CLEARED FOR TRANSFER.
== END 2020-09-21 16:05 ==
LOC: ER 08:40
DX: R45.851 Suicidal ideations (principal); F20.9 Schizophrenia, unspecified; G62.9 Polyneuropathy, unspecified; F19.10 Other psychoactive substance abuse, uncomplicated; Z91.14 Patient's other noncompliance with medication regimen; Z59.0 Homelessness; F17.200 Nicotine dependence, unspecified, uncomplicated; Z79.899 Other long term (current) drug therapy; Z82.49 Family history of ischemic heart disease and other diseases of the circulatory system; Z20.828 Contact with and (suspected) exposure to other viral communicable diseases
CPT/HCPCS: 36415; 80048; 80076; 80299; 80307; 80320; 81001; 85025; 87426; 99285; C9803; G0480

== ENCOUNTER 2020-10-30 20:50 | Emergency (ER) | payer BC, MEDICAID, OTHER ==
[~2020-10-30] VITALS: Ht 167.6 cm; Wt 68.0 kg
[2020-10-30 22:01] LABS: BASOPHILS % (AUTO) 0.8 % (0.0-2.0); EOSINOPHILS % (AUTO) 0.4 % (0.0-6.0); HEMATOCRIT 37 % (39-51); HEMOGLOBIN 12.2 g/dL (13.5-17.5); LYMPHOCYTES # (AUTO) 1.4 /CMM (0.8-4.8); LYMPHOCYTES % (AUTO) 22.7 % (20.0-44.0); MEAN CORPUSCULAR HGB CONC 33 g/dl (31.0-36.0); MEAN CORPUSCULAR VOLUME 85 fL (80-96); MONOCYTES # (AUTO) 0.3 /CMM (0.1-1.30); MONOCYTES % (AUTO) 4.8 % (2.0-12.0); NEUTROPHILS # (AUTO) 4.3 /CMM (1.8-8.9); NEUTROPHILS % (AUTO) 71.3 % (43.0-81.0); PLATELET COUNT (AUTO) 236 /CMM (150-450); RED BLOOD CELL COUNT(AUTO) 4.29 MIL/uL (4.5-6.0)
[2020-10-30 22:20] LABS: ALANINE AMINOTRANSFERASE 29 U/L (12-78); ALBUMIN 3.8 g/dL (3.4-5.0); ALCOHOL, BLOOD 36 mg/dL (0-0); ALKALINE PHOSPHATASE 114 U/L (46-116); ASPARTATE AMINOTRANSFERASE 43 U/L (15-37); BILIRUBIN,DIRECT 0.3 mg/dL (0.0-0.2); BILIRUBIN,TOTAL 1.8 mg/dL (0.2-1.0); CALCIUM, SERUM 8.5 mg/dL (8.5-10.1); CARBON DIOXIDE 26 mmol/L (21-32); CHLORIDE 103 mmol/L (98-107); GLUCOSE 103 mg/dL (74-106); POTASSIUM 3.9 mmol/L (3.5-5.1); SODIUM SERUM 139 mmol/L (136-145); UREA NITROGEN, BLOOD 14 mg/dL (7-18)
[2020-10-30 22:23] LABS: ACETAMINOPHEN 0 ug/ml (10-30)
[2020-10-30 22:27] LABS: BILIRUBIN,URINE NEGATIVE (NEGATIVE); COLOR,URINE YELLOW (YELLOW); LEUKOCYTE ESTERASE ,URINE NEGATIVE (NEGATIVE); NITRITE, URINE NEGATIVE (NEGATIVE); PROTEIN,URINE NEGATIVE (NEGATIVE); UGLUCOSE NEGATIVE (NEGATIVE); UROBILINOGEN,URINE 0.2 EU/dL (0.2)
[2020-10-30] MEDS ORDERED: OLANZAPINE 5 MG TABLET PO ONE (22:30)
[2020-10-30] MEDS ORDERED: OLANZAPINE ZYDIS 5 MG TAB.RAPDIS ONE (22:39)
[2020-10-30] MEDS ORDERED: OLANZAPINE 5 MG TABLET ONE (22:40)
[2020-10-31 00:32] VITALS: BP 128/79
== END 2020-10-31 00:34 ==
LOC: ER 20:52
DX: R45.851 Suicidal ideations (principal); F20.9 Schizophrenia, unspecified; F19.10 Other psychoactive substance abuse, uncomplicated; Z59.0 Homelessness; Z91.14 Patient's other noncompliance with medication regimen; G62.9 Polyneuropathy, unspecified; F41.9 Anxiety disorder, unspecified; Z20.822 Contact with and (suspected) exposure to COVID-19; D64.9 Anemia, unspecified; F17.200 Nicotine dependence, unspecified, uncomplicated; Z88.8 Allergy status to other drugs, medicaments and biological substances; F15.10 Other stimulant abuse, uncomplicated; R17 Unspecified jaundice
CPT/HCPCS: 36415; 80048; 80076; 80299; 80307; 80320; 81003; 85025; 87426; 99285; 99406; C9803; G0480

== ENCOUNTER 2020-12-04 23:59 | Emergency (ER) | payer MEDICAID ==
[~2020-12-04] VITALS: Ht 167.6 cm; Wt 68.0 kg
--- NOTE | 2020-12-05 | NUR ---
TO ER BED C/O SI WITH PLAN TO CUT WRIST. REQUESTING VOLUNTARY ADMISSION TO [facility]. PT AAOX4 NO ACUTE DISTRESS NOTED, RESP EVEN AND UNLABORED. PT CALM AND COOPERATIVE AT THIS TIME. PENDING ER MD YADAV. 1:1 SITTER AT BEDSIDE FOR PT SAFETY.
--- NOTE | 2020-12-05 00:34 | NUR ---
PATIENT'S PERSONAL BELONGINGS COLLECTED AND SENT TO THE LOCKED LOCKER.
[2020-12-05 00:55] LABS: BILIRUBIN,URINE NEGATIVE (NEGATIVE); COLOR,URINE YELLOW (YELLOW); LEUKOCYTE ESTERASE ,URINE TRACE (NEGATIVE); NITRITE, URINE NEGATIVE (NEGATIVE); PH,URINE 5.5 (5.0-8.0); PROTEIN,URINE TRACE mg/dl (NEGATIVE); UGLUCOSE NEGATIVE (NEGATIVE); UROBILINOGEN,URINE 0.2 EU/dL (0.2)
[2020-12-05 01:05] LABS: BASOPHILS % (AUTO) 0.4 % (0.0-2.0); EOSINOPHILS % (AUTO) 2.6 % (0.0-6.0); HEMATOCRIT 46 % (39-51); HEMOGLOBIN 15.8 g/dL (13.5-17.5); LYMPHOCYTES # (AUTO) 1.3 /CMM (0.8-4.8); LYMPHOCYTES % (AUTO) 21.8 % (20.0-44.0); MEAN CORPUSCULAR HGB CONC 34 g/dl (31.0-36.0); MEAN CORPUSCULAR VOLUME 85 fL (80-96); MONOCYTES # (AUTO) 0.6 /CMM (0.1-1.30); MONOCYTES % (AUTO) 9.4 % (2.0-12.0); NEUTROPHILS % (AUTO) 65.8 % (43.0-81.0); PLATELET COUNT (AUTO) 293 /CMM (150-450); RED BLOOD CELL COUNT(AUTO) 5.39 MIL/uL (4.5-6.0); WHITE BLOOD COUNT (AUTO) 6.1 K/uL (4.3-11.0)
[2020-12-05 01:22] LABS: BACTERIA,URINE Few /HPF (None Seen); MUCUS,URINE Few /LPF (None Seen); SQUAMOUS EPITHELIAL CELL,UR Few /HPF (None Seen); URINE AMORPHOUS URATE Few /HPF (None Seen)
[2020-12-05 01:29] LABS: CALCIUM, SERUM 9.8 mg/dL (8.5-10.1); CARBON DIOXIDE 27 mmol/L (21-32); CHLORIDE 99 mmol/L (98-107); CREATININE 0.8 mg/dL (0.6-1.3); GLUCOSE 111 mg/dL (74-106); SODIUM SERUM 137 mmol/L (136-145); UREA NITROGEN, BLOOD 16 mg/dL (7-18)
--- NOTE | 2020-12-05 01:34 | NUR ---
CALL FROM LAB. RAPID COVID NEGATIVE.
[2020-12-05 01:36] LABS: ALANINE AMINOTRANSFERASE 45 U/L (12-78); ALBUMIN 4.6 g/dL (3.4-5.0); ALCOHOL, BLOOD < 3 mg/dL (0-0); ALKALINE PHOSPHATASE 114 U/L (46-116); ASPARTATE AMINOTRANSFERASE 22 U/L (15-37); BILIRUBIN,DIRECT 0.3 mg/dL (0.0-0.2); BILIRUBIN,TOTAL 1.6 mg/dL (0.2-1.0); TOTAL PROTEIN, SERUM 8.8 g/dL (6.4-8.2)
[2020-12-05 01:40] LABS: ACETAMINOPHEN 0 ug/ml (10-30)
--- NOTE | 2020-12-05 01:48 | NUR ---
CLINICAL AND FACESHEET FAXED TO [facility] INTAKE FOR VOLUNTARY PSYCH ADMISSION.
[2020-12-05] MEDS ORDERED: LORAZEPAM 1 MG TABLET ONE (01:59)
[2020-12-05] MEDS ORDERED: CLONIDINE HCL 0.1 MG TABLET ONE (01:59)
[2020-12-05] MEDS ORDERED: CLONIDINE HCL 0.1 MG TABLET PO ONE (02:00)
[2020-12-05] MEDS ORDERED: LORAZEPAM 1 MG TABLET PO ONE (02:00)
--- NOTE | 2020-12-05 03:43 | NUR ---
PER LORENZO FROM [facility], NO BEDS AVAILABLE AT THIS TIME
--- NOTE | 2020-12-05 08:45 | NUR ---
CALLED TRANSPORT [facility] ASKED FOR 1100
[2020-12-05 12:11] VITALS: BP 141/82
--- NOTE | 2020-12-05 12:11 | NUR ---
Patient discharged in stable condition, picked up by private ambulance going to [facility], in no distress.
== END 2020-12-05 12:11 ==
LOC: ER 12-05 00:03
DX: R45.851 Suicidal ideations (principal); Z59.0 Homelessness; G62.9 Polyneuropathy, unspecified; F20.9 Schizophrenia, unspecified; Z88.8 Allergy status to other drugs, medicaments and biological substances; Z79.899 Other long term (current) drug therapy
CPT/HCPCS: 36415; 80048; 80076; 80299; 80307; 80320; 81001; 85025; 87086; 87426; 99285; C9803; G0480

== ENCOUNTER 2021-03-19 02:06 | Emergency (ER) | payer MEDICAID ==
[~2021-03-19] VITALS: Ht 167.6 cm; Wt 68.0 kg
--- NOTE | 2021-03-19 02:19 | NUR ---
PT AAOX4. AMBULTORY WITH STEADY GAIT. BIBSELF C/O SUICIDAL WITH PLAN TO CUT HIS WRIST. REQUESTING VOLUNTARY ADMISSION. PLACED IN BED 15 IN GOWN, ON MONITOR, AND PULSE OX. AWAITING ER MD FOR EVAL AND ORDERS.
[2021-03-19 03:13] LABS: BASOPHILS % (AUTO) 0.4 % (0.0-2.0); EOSINOPHILS % (AUTO) 0.9 % (0.0-6.0); HEMATOCRIT 41 % (39-51); HEMOGLOBIN 13.6 g/dL (13.5-17.5); LYMPHOCYTES # (AUTO) 1.4 K/uL (0.8-4.8); LYMPHOCYTES % (AUTO) 28.3 % (20.0-44.0); MEAN CORPUSCULAR HGB CONC 33 g/dl (31.0-36.0); MEAN CORPUSCULAR VOLUME 88 fL (80-96); MONOCYTES # (AUTO) 0.4 K/uL (0.1-1.30); MONOCYTES % (AUTO) 7.9 % (2.0-12.0); NEUTROPHILS # (AUTO) 3.2 K/uL (1.8-8.9); NEUTROPHILS % (AUTO) 62.5 % (43.0-81.0); PLATELET COUNT (AUTO) 229 K/uL (150-450); RED BLOOD CELL COUNT(AUTO) 4.64 MIL/uL (4.5-6.0); WHITE BLOOD COUNT (AUTO) 5.1 K/uL (4.3-11.0)
[2021-03-19 03:14] LABS: ALANINE AMINOTRANSFERASE 46 U/L (12-78); ALBUMIN 4.2 g/dL (3.4-5.0); ALKALINE PHOSPHATASE 120 U/L (46-116); ASPARTATE AMINOTRANSFERASE 34 U/L (15-37); BILIRUBIN,DIRECT 0.4 mg/dL (0.0-0.2); BILIRUBIN,TOTAL 2.3 mg/dL (0.2-1.0); CALCIUM, SERUM 9.4 mg/dL (8.5-10.1); CARBON DIOXIDE 28 mmol/L (21-32); CHLORIDE 100 mmol/L (98-107); CREATININE 0.8 mg/dL (0.6-1.3); GLUCOSE 79 mg/dL (74-106); POTASSIUM 4.2 mmol/L (3.5-5.1); SODIUM SERUM 139 mmol/L (136-145); UREA NITROGEN, BLOOD 19 mg/dL (7-18)
[2021-03-19 03:15] LABS: ACETAMINOPHEN 0 ug/ml (10-30); ALCOHOL, BLOOD < 3 mg/dL (0-0)
[2021-03-19 03:25] LABS: BILIRUBIN,URINE Negative (NEGATIVE); COLOR,URINE YELLOW (YELLOW); LEUKOCYTE ESTERASE ,URINE Negative (NEGATIVE); NITRITE, URINE Negative (NEGATIVE); PH,URINE 5.5 (5.0-8.0); PROTEIN,URINE Negative (NEGATIVE); UGLUCOSE Negative (NEGATIVE); UROBILINOGEN,URINE 0.2 EU/dL (0.2)
--- NOTE | 2021-03-19 05:20 | NUR ---
FACESHEET AND CLINICALS FAXED TO [facility].
--- NOTE | 2021-03-19 05:42 | NUR ---
PT RESTING COMFORTABLY.
--- NOTE | 2021-03-19 07:26 | NUR ---
ASSESSED PT ON BED ASLEEP EASILY AROUSABLE, NOT IN RESPIRATORY DISTRESS, V/S STABLE, KEPT RESTED AND COMFORTABLE. WILL CONTINUE TO MONITOR.
--- NOTE | 2021-03-19 07:27 | NUR ---
PT ACCEPTED TO [facility] BY DR SANTACRUZ. # FOR REPORT [phone].
--- NOTE | 2021-03-19 07:36 | NUR ---
CALLED TRANSPORT AM ETA 899
--- NOTE | 2021-03-19 08:46 | NUR ---
report given to madison PÉREZ patient is going to room 602-A.
--- NOTE | 2021-03-19 09:42 | NUR ---
REPORT GIVEN TO EMT FOR PT TRANSFER TO [facility].
[2021-03-19 09:47] VITALS: BP 122/66
== END 2021-03-19 09:48 ==
LOC: ER 02:06
DX: R45.851 Suicidal ideations (principal); Z20.822 Contact with and (suspected) exposure to COVID-19; G62.9 Polyneuropathy, unspecified; F20.9 Schizophrenia, unspecified; Z59.0 Homelessness
CPT/HCPCS: 36415; 80048; 80076; 80143; 80307; 80320; 81003; 85025; 87426; 99285; C9803; G0480

== ENCOUNTER 2021-05-26 11:34 | Emergency (ER) | payer MEDICAID ==
[~2021-05-26] VITALS: Ht 167.6 cm; Wt 67.6 kg
--- NOTE | 2021-05-26 12:45 | NUR ---
Patient came in to the er c/o SI "want to cut his wrist". On room air, breathing evenly and unlabored. Kept comfortable, sitter at bedside for constant monitoring. Will continue to monitor accordingly.
--- NOTE | 2021-05-26 12:46 | NUR ---
called security for wanding.
--- NOTE | 2021-05-26 12:46 | NUR ---
Urine collected and sent to lab.
--- NOTE | 2021-05-26 12:54 | NUR ---
security at bedside for wanding.
[2021-05-26 13:12] LABS: BASOPHILS % (AUTO) 0.6 % (0.0-2.0); EOSINOPHILS % (AUTO) 1.1 % (0.0-6.0); HEMATOCRIT 43 % (39-51); HEMOGLOBIN 14.4 g/dL (13.5-17.5); LYMPHOCYTES # (AUTO) 1.9 K/uL (0.8-4.8); LYMPHOCYTES % (AUTO) 30.4 % (20.0-44.0); MEAN CORPUSCULAR HGB CONC 34 g/dl (31.0-36.0); MEAN CORPUSCULAR VOLUME 89 fL (80-96); MONOCYTES # (AUTO) 0.5 K/uL (0.1-1.30); MONOCYTES % (AUTO) 7.2 % (2.0-12.0); NEUTROPHILS # (AUTO) 3.9 K/uL (1.8-8.9); NEUTROPHILS % (AUTO) 60.7 % (43.0-81.0); PLATELET COUNT (AUTO) 289 K/uL (150-450); RED BLOOD CELL COUNT(AUTO) 4.79 MIL/uL (4.5-6.0); WHITE BLOOD COUNT (AUTO) 6.4 K/uL (4.3-11.0)
[2021-05-26 13:16] LABS: CALCIUM, SERUM 9.2 mg/dL (8.5-10.1); CARBON DIOXIDE 25 mmol/L (21-32); CHLORIDE 101 mmol/L (98-107); GLUCOSE 83 mg/dL (74-106); POTASSIUM 3.9 mmol/L (3.5-5.1); SODIUM SERUM 138 mmol/L (136-145); UREA NITROGEN, BLOOD 12 mg/dL (7-18)
[2021-05-26 13:22] LABS: ALANINE AMINOTRANSFERASE 26 U/L (12-78); ALCOHOL, BLOOD < 3 mg/dL (0-0); ALKALINE PHOSPHATASE 109 U/L (46-116); ASPARTATE AMINOTRANSFERASE 20 U/L (15-37); BILIRUBIN,DIRECT 0.4 mg/dL (0.0-0.2); TOTAL PROTEIN, SERUM 7.5 g/dL (6.4-8.2)
[2021-05-26 13:30] LABS: BILIRUBIN,URINE SMALL (NEGATIVE); COLOR,URINE YELLOW (YELLOW); LEUKOCYTE ESTERASE ,URINE NEGATIVE (NEGATIVE); NITRITE, URINE NEGATIVE (NEGATIVE); PROTEIN,URINE NEGATIVE (NEGATIVE); UGLUCOSE NEGATIVE (NEGATIVE); UROBILINOGEN,URINE 0.2 EU/dL (0.2)
[2021-05-26 13:38] LABS: BACTERIA,URINE Rare /HPF (None Seen); RBC,URINE NONE SEEN /HPF (0-2); SQUAMOUS EPITHELIAL CELL,UR Rare /HPF (None Seen); WBC,URINE 0-2 /HPF (0-3)
[2021-05-26 13:46] LABS: ACETAMINOPHEN < 10 ug/ml (10-30)
--- NOTE | 2021-05-26 13:57 | NUR ---
COVID SPECIMEN COLLECTED AND SENT TO LAB.
[2021-05-26] MEDS ORDERED: OLANZAPINE 5 MG TABLET PO ONE (14:30)
[2021-05-26] MEDS ORDERED: OLANZAPINE 5 MG TABLET ONE (14:38)
--- NOTE | 2021-05-26 15:48 | NUR ---
cont to monitor the pt sleeping soundly
--- NOTE | 2021-05-26 17:39 | NUR ---
[facility]ORT [facility] CALL[facility] ETA 190
--- NOTE | 2021-05-26 18:50 | NUR ---
TRANSPORTED TO [facility] IN STABLE CONDITION.
[2021-05-26 18:51] VITALS: BP 132/70
== END 2021-05-26 18:52 ==
LOC: ER 11:38
DX: R45.851 Suicidal ideations (principal); F29 Unspecified psychosis not due to a substance or known physiological condition; F22 Delusional disorders; F15.10 Other stimulant abuse, uncomplicated; G62.9 Polyneuropathy, unspecified; F20.9 Schizophrenia, unspecified; Z59.0 Homelessness; Z88.8 Allergy status to other drugs, medicaments and biological substances; Z20.822 Contact with and (suspected) exposure to COVID-19
CPT/HCPCS: 36415; 80048; 80076; 80143; 80307; 80320; 81001; 85025; 87426; 99285; C9803; G0480

== ENCOUNTER 2021-07-05 10:16 | Emergency (ER) | payer MEDICAID ==
[~2021-07-05] VITALS: Ht 167.6 cm; Wt 67.1 kg
--- NOTE | 2021-07-05 10:32 | NUR ---
URINE COLLECTED AND SENT TO LAB
[2021-07-05 10:46] LABS: BILIRUBIN,URINE Negative (NEGATIVE); COLOR,URINE YELLOW (YELLOW); LEUKOCYTE ESTERASE ,URINE Negative (NEGATIVE); NITRITE, URINE Negative (NEGATIVE); PH,URINE 5.5 (5.0-8.0); PROTEIN,URINE Negative (NEGATIVE); UGLUCOSE Negative (NEGATIVE); UROBILINOGEN,URINE 0.2 EU/dL (0.2)
[2021-07-05 11:14] LABS: BASOPHILS % (AUTO) 0.5 % (0.0-2.0); EOSINOPHILS % (AUTO) 1.5 % (0.0-6.0); HEMATOCRIT 40 % (39-51); HEMOGLOBIN 13.6 g/dL (13.5-17.5); LYMPHOCYTES # (AUTO) 1.5 K/uL (0.8-4.8); LYMPHOCYTES % (AUTO) 28.5 % (20.0-44.0); MEAN CORPUSCULAR HGB CONC 34 g/dl (31.0-36.0); MEAN CORPUSCULAR VOLUME 87 fL (80-96); MONOCYTES # (AUTO) 0.4 K/uL (0.1-1.30); MONOCYTES % (AUTO) 8.2 % (2.0-12.0); NEUTROPHILS # (AUTO) 3.2 K/uL (1.8-8.9); NEUTROPHILS % (AUTO) 61.3 % (43.0-81.0); PLATELET COUNT (AUTO) 229 K/uL (150-450); WHITE BLOOD COUNT (AUTO) 5.1 K/uL (4.3-11.0)
[2021-07-05 11:23] LABS: CALCIUM, SERUM 8.4 mg/dL (8.5-10.1); CARBON DIOXIDE 27 mmol/L (21-32); CHLORIDE 107 mmol/L (98-107); GLUCOSE 179 mg/dL (74-106); POTASSIUM 3.6 mmol/L (3.5-5.1); SODIUM SERUM 143 mmol/L (136-145); UREA NITROGEN, BLOOD 16 mg/dL (7-18)
[2021-07-05 11:30] LABS: ALANINE AMINOTRANSFERASE 35 U/L (12-78); ALBUMIN 3.5 g/dL (3.4-5.0); ALKALINE PHOSPHATASE 147 U/L (46-116); ASPARTATE AMINOTRANSFERASE 32 U/L (15-37); BILIRUBIN,DIRECT 0.3 mg/dL (0.0-0.2); BILIRUBIN,TOTAL 1.3 mg/dL (0.2-1.0); TOTAL PROTEIN, SERUM 6.7 g/dL (6.4-8.2)
[2021-07-05 11:31] LABS: ACETAMINOPHEN 0 ug/ml (10-30); ALCOHOL, BLOOD < 3 mg/dL (0-0)
[2021-07-05 15:11] VITALS: BP 127/76
--- NOTE | 2021-07-05 19:11 | NUR ---
REPORT GIVEN TO NURSE MAO FOR STEFANIE
--- NOTE | 2021-07-05 19:26 | NUR ---
FACEHSHEET AND CLINICALS FAXED TO [facility].
--- NOTE | 2021-07-05 21:44 | NUR ---
PT ACCEPTED TO [facility]. [facility] ACCEPT[facility] TO [facility] BY DR NAVARRO. # FOR REPORT [phone].
--- NOTE | 2021-07-05 21:50 | NUR ---
[facility] CALLED FOR TRANSPORT. 30-40 MIN ETA Addendum: 07/05/21 at 2207 by CBATACLAN [facility] CALLED FOR TRANSPORT. 2 HR ETA
--- NOTE | 2021-07-05 23:11 | NUR ---
REPORT GIVEN TO CARLYN PÉREZ FOR CONTINUATION OF CARE.
--- NOTE | 2021-07-05 23:15 | NUR ---
[facility] AT BEDSIDE FOR TRANSPORT TO [facility].
== END 2021-07-05 23:15 ==
LOC: ER 10:20
DX: R45.851 Suicidal ideations (principal); F20.9 Schizophrenia, unspecified; Z20.822 Contact with and (suspected) exposure to COVID-19; Z59.00 Homelessness unspecified; G62.9 Polyneuropathy, unspecified; Z88.8 Allergy status to other drugs, medicaments and biological substances; F17.200 Nicotine dependence, unspecified, uncomplicated; Z82.49 Family history of ischemic heart disease and other diseases of the circulatory system; F19.10 Other psychoactive substance abuse, uncomplicated
CPT/HCPCS: 36415; 80048; 80076; 80143; 80307; 80320; 81003; 85025; 87426; 99285; C9803; G0480

== ENCOUNTER 2021-08-20 11:57 | Emergency (ER) | payer MEDICAID ==
[~2021-08-20] VITALS: Ht 167.6 cm; Wt 63.5 kg
--- NOTE | 2021-08-20 12:12 | NUR ---
URINE COLLECTED AND SENT TO THE LAB
[2021-08-20 13:07] LABS: BASOPHILS % (AUTO) 0.4 % (0.0-2.0); EOSINOPHILS % (AUTO) 0.6 % (0.0-6.0); HEMATOCRIT 45 % (39-51); HEMOGLOBIN 15.2 g/dL (13.5-17.5); LYMPHOCYTES # (AUTO) 2.1 K/uL (0.8-4.8); LYMPHOCYTES % (AUTO) 32.1 % (20.0-44.0); MEAN CORPUSCULAR HGB CONC 34 g/dl (31.0-36.0); MEAN CORPUSCULAR VOLUME 88 fL (80-96); MONOCYTES # (AUTO) 0.4 K/uL (0.1-1.30); MONOCYTES % (AUTO) 5.7 % (2.0-12.0); NEUTROPHILS % (AUTO) 61.2 % (43.0-81.0); PLATELET COUNT (AUTO) 329 K/uL (150-450); RED BLOOD CELL COUNT(AUTO) 5.11 MIL/uL (4.5-6.0); WHITE BLOOD COUNT (AUTO) 6.5 K/uL (4.3-11.0)
--- NOTE | 2021-08-20 13:26 | NUR ---
COVID ANTIGEN COLLECTED AND SENT TO LAB
[2021-08-20 14:23] LABS: ALANINE AMINOTRANSFERASE 32 U/L (12-78); ALBUMIN 4.5 g/dL (3.4-5.0); ALCOHOL, BLOOD < 3 mg/dL (0-0); ALKALINE PHOSPHATASE 154 U/L (46-116); ASPARTATE AMINOTRANSFERASE 31 U/L (15-37); BILIRUBIN,DIRECT 0.3 mg/dL (0.0-0.2); BILIRUBIN,TOTAL 1.3 mg/dL (0.2-1.0); CALCIUM, SERUM 9.7 mg/dL (8.5-10.1); CARBON DIOXIDE 32 mmol/L (21-32); CHLORIDE 97 mmol/L (98-107); GLUCOSE 97 mg/dL (74-106); POTASSIUM 3.8 mmol/L (3.5-5.1); SODIUM SERUM 136 mmol/L (136-145); TOTAL PROTEIN, SERUM 8.4 g/dL (6.4-8.2); UREA NITROGEN, BLOOD 9 mg/dL (7-18)
[2021-08-20 14:28] LABS: ACETAMINOPHEN 0 ug/ml (10-30)
[2021-08-20 14:50] LABS: BILIRUBIN,URINE NEGATIVE (NEGATIVE); COLOR,URINE YELLOW (YELLOW); LEUKOCYTE ESTERASE ,URINE NEGATIVE (NEGATIVE); NITRITE, URINE NEGATIVE (NEGATIVE); PH,URINE 6.5 (5.0-8.0); PROTEIN,URINE TRACE mg/dl (NEGATIVE); UGLUCOSE NEGATIVE (NEGATIVE); UROBILINOGEN,URINE 0.2 EU/dL (0.2)
--- NOTE | 2021-08-20 14:53 | NUR ---
SPOKE TO ACCOUNT DEVELOPMENT EXECUTIVE AND WAS NOTIFIED THAT THE SHE WILL SEND CLINICALS TO [facility].
[2021-08-20 15:15] LABS: BACTERIA,URINE None seen /HPF (None Seen); MUCUS,URINE Many /LPF (None Seen); RBC,URINE 0-2 /HPF (0-2); SQUAMOUS EPITHELIAL CELL,UR 0-2 /HPF (None Seen); WBC,URINE 0-2 /HPF (0-3)
--- NOTE | 2021-08-20 15:43 | NUR ---
"SS Consult: SS consult for Suicidal. Pt. Is a 46-year-old male. Pt. demonstrates adequate insight to the reason for hospitalization. Per pt., he was brought to hospital due to thoughts of suicidal. Pt. was oriented x3, alert, and cooperative. During interview, pt. was capable of following directions, did not make eye-contact [was looking down to the floor], and appeared unkempt. Evidenced by: dirty clothing. Pt.'s speech was at a normal rate. JUAN explored pt.'s Hx of mental health and substance abuse. Pt. reported no Hx of mental health, or homicidal. Pt. denies auditory hallucinations, visual hallucinations, paranoia, or delusions. Pt. reported having suicidal ideation and substance use [methamphetamine and alcohol]. JUAN explored pt.'s living situation. Per pt., he is homeless. Pt. mentioned that he goes back and forth from family's house to the streets. Pt. expressed that he wants to go to [facility]. Plan: JUAN provided available homeless resources and pt. accepted. JUAN fax clinical reports over to [facility] [Jerson, fax: [phone], tele: [phone]]. Jerson will contact ED when ready. Resources Provided: Year-round shelters: Byron Carrier [address] [place] [address] ; [facility] [address] [place] [address]; [facility] Ikajcus[address] [facility] [address] Winter Shelters: Doug Damian Provider: [facility] Address: [address] [facility] [address], [address] # of Beds: 47 Population Served: [facility] 6 | [facility] Grace Villanueva [place] Provider: [facility] Last Address: [address], [address] # of Beds: 66 Population Served: [facility] [employer] [place] Provider: First to Serve Address: [id number] [place] [address], [address] # of Beds: 56 Population Served: [facility] [place] [place] Provider: /Ms. [facility] Address: [address] [facility], [address] # of Beds: 49 Population Served: [facility] SPA 8 | [facility] Provider: First to Serve Address: [address], [address] # of Beds: 37 Population Served: [facility] Hygiene: [facility] [place] [facility]: [address] [place] ; [facility] [place] [facility] [address] [facility] ; [facility] [address] [facility] . Food Resources: [place] [facility] at [facility]- [address] [facility]; Meet Each Need with Dignity ([facility]) [address] [facility]; [facility] Food Pantry [address] [facility]; [facility] [address] [facility]. Mental Health resources provided: [facility] [address] [place], [place] [phone] ; [facility] [address] [facility] [address], [place], [place] [id number] ; Mcdaniel Ewa [facility] [address] [place], [place] [phone] ; [facility] [address] [place], [place] [phone] Healthcare Clinics: [facility] [address] [facility], [address] [place]. [place] ; [facility] [address] [facility] [address] [place] [address]; [facility] [address] [facility]. [place] [phone] Counseling--Outpatient [facility] [address] [address] [facility], [address] [place], [place] [id number] (Specializes in in-depth psychotherapy for emotional distress: anxiety, depression, interpersonal conflicts, life transitions, childhood abuse) [facility] [address] [place], [place] [address] (Assist with solving problem marital difficulties, separation & divorce, aging parents, & grief, chronic & terminal illness) [facility] [address] [place] [address] (Deal with loss & grief, anxiety, marital difficulties) Homebound/Mental Health Services [address] [facility] [address] [place], [place] [id number] (Provide in-home mental services to people who are incapable of leaving their homes) Organization for Needs of the Elderly Senior Service/Resource Center [address] [place] [address] [facility] [address] [place], [place] [address] PSYCHIATRIC OUTPATIENT SERVICES [facility] Partial Hospitalization and Intensive Outpatient Program (Managed Care and [place] Only)[address] [facility] [phone] [facility] Partial Hospitalization and Outpatient Akyhhcy[address] [facility] [address] [place], [place] [phone] [facility] Mental Health [place] Mmd[address] [facility] [address] [place], [place] [phone] [facility] Partial Hospitalization and Outpatient Spcbvdl00686 [place], [phone] Substance Abuse resources provided included: [facility] Substance Abuse Self-Helpline (SAS) ; [facility] [address] [facility] [place]. [place] [address] ; [facility] [address] [facility] [address] ; [facility] [address] [facility] [address] ; [facility] [address] [facility] [phone] ; [facility] [address] Deni Molina [facility] [address] ; [facility] [address] [facility] [phone] ; [facility] Substance Abuse Helpline(SAS)-[facility] ; [facility] Family Counseling ; [facility] [place]; [facility]; [facility] [place]; I-AD[facility] Deni Molina; [facility] [place]; [facility] [place]; [facility] [place]; [facility]'s [place] Nadir Damian; Alcoholics Anonymous -SFV; Yy-Znbi-Imqzndg ; Marijuana Anonymous -SFV; Narcotics Anonymous www.na.org;"
--- NOTE | 2021-08-21 07:00 | NUR ---
PT IS ACCEPTED AT THE [facility] UNDER THE CARE OF DR. ROGEL. CALL [phone] EXT [phone] FOR REPORT.
--- NOTE | 2021-08-21 08:25 | NUR ---
[facility] CALLED TRANSPORT ETA 90 MINS.
--- NOTE | 2021-08-21 09:00 | NUR ---
REPORT GIVEN TO NURSE SARABIA FROM [facility]
[2021-08-21 09:33] VITALS: BP 138/98
== END 2021-08-21 09:35 ==
LOC: ER 11:57
DX: R45.851 Suicidal ideations (principal); F20.9 Schizophrenia, unspecified; Z59.01 Sheltered homelessness; F17.200 Nicotine dependence, unspecified, uncomplicated; Z20.822 Contact with and (suspected) exposure to COVID-19; G62.9 Polyneuropathy, unspecified; Z79.899 Other long term (current) drug therapy; Z88.8 Allergy status to other drugs, medicaments and biological substances; F15.10 Other stimulant abuse, uncomplicated; Z82.49 Family history of ischemic heart disease and other diseases of the circulatory system
CPT/HCPCS: 36415; 80048; 80076; 80143; 80307; 80320; 81001; 85025; 87426; 99285; C9803; G0480

== ENCOUNTER 2021-09-24 10:21 | Emergency (ER) | payer MEDICAID ==
[~2021-09-24] VITALS: Ht 167.6 cm; Wt 66.2 kg
--- NOTE | 2021-09-24 10:40 | NUR ---
BIBS FOR C/O FEELING SUICIDAL,PLAN IS TO CUT HIS WRIST,REQUESTING VOLUNTARY ADMISSION TO [facility]. DENIES HI. DENIES HAVING ANY HALLUCINATIONS. RESPIRATION REGULAR AND UNLABORED. WILL CONTINUE TO MONITOR THE PATIENT.
[2021-09-24 11:40] LABS: BASOPHILS % (AUTO) 0.5 % (0.0-2.0); EOSINOPHILS % (AUTO) 1.9 % (0.0-6.0); HEMATOCRIT 42 % (39-51); HEMOGLOBIN 13.9 g/dL (13.5-17.5); LYMPHOCYTES # (AUTO) 1.6 K/uL (0.8-4.8); LYMPHOCYTES % (AUTO) 39.9 % (20.0-44.0); MEAN CORPUSCULAR HGB CONC 33 g/dl (31.0-36.0); MEAN CORPUSCULAR VOLUME 89 fL (80-96); MONOCYTES # (AUTO) 0.3 K/uL (0.1-1.30); MONOCYTES % (AUTO) 7.3 % (2.0-12.0); NEUTROPHILS # (AUTO) 2.1 K/uL (1.8-8.9); NEUTROPHILS % (AUTO) 50.4 % (43.0-81.0); PLATELET COUNT (AUTO) 233 K/uL (150-450); RED BLOOD CELL COUNT(AUTO) 4.71 MIL/uL (4.5-6.0); WHITE BLOOD COUNT (AUTO) 4.1 K/uL (4.3-11.0)
[2021-09-24 12:20] LABS: CALCIUM, SERUM 9.1 mg/dL (8.5-10.1); CARBON DIOXIDE 30 mmol/L (21-32); CHLORIDE 103 mmol/L (98-107); CREATININE 0.9 mg/dL (0.6-1.3); GLUCOSE 87 mg/dL (74-106); POTASSIUM 4.1 mmol/L (3.5-5.1); SODIUM SERUM 140 mmol/L (136-145); UREA NITROGEN, BLOOD 10 mg/dL (7-18)
[2021-09-24 12:26] LABS: ALANINE AMINOTRANSFERASE 31 U/L (12-78); ALBUMIN 3.8 g/dL (3.4-5.0); ALKALINE PHOSPHATASE 102 U/L (46-116); ASPARTATE AMINOTRANSFERASE 21 U/L (15-37); BILIRUBIN,DIRECT 0.2 mg/dL (0.0-0.2); BILIRUBIN,TOTAL 0.8 mg/dL (0.2-1.0); TOTAL PROTEIN, SERUM 7.2 g/dL (6.4-8.2)
[2021-09-24 12:28] LABS: ACETAMINOPHEN < 0 ug/ml (10-30); ALCOHOL, BLOOD < 3 mg/dL (0-0)
--- NOTE | 2021-09-24 14:38 | NUR ---
JUAN faxed clinicals to [facility] [fax:[phone]]. Jerson did not recieved previous clinicals.
[2021-09-25 01:43] LABS: BILIRUBIN,URINE NEGATIVE (NEGATIVE); COLOR,URINE YELLOW (YELLOW); LEUKOCYTE ESTERASE ,URINE NEGATIVE (NEGATIVE); NITRITE, URINE NEGATIVE (NEGATIVE); PROTEIN,URINE NEGATIVE (NEGATIVE); UGLUCOSE NEGATIVE (NEGATIVE); UROBILINOGEN,URINE 0.2 EU/dL (0.2)
--- NOTE | 2021-09-25 05:18 | NUR ---
PT GOT ACCEPTED AT [facility] BY DR NEAL. UNIT 2. # FOR REPORT: [phone] ETA: TO BE GIVEN
[2021-09-25 07:30] VITALS: BP 128/73
--- NOTE | 2021-09-25 13:37 | NUR ---
Griselda rodriguez in [facility] - 09/25/21 at 1649 by TENA REPORT GIVEN TO NURSE GERI JESSICA STEFANIE
--- NOTE | 2021-09-25 16:50 | NUR ---
PATIENT ELOPED IN STABLE CONDITION, AWARE
== END 2021-09-25 16:51 | disposition left against medical advice (07) ==
LOC: ER 10:23
DX: R45.851 Suicidal ideations (principal); F32.A Depression, unspecified; F20.9 Schizophrenia, unspecified; G62.9 Polyneuropathy, unspecified; Z20.822 Contact with and (suspected) exposure to COVID-19; Z53.29 Procedure and treatment not carried out because of patient's decision for other reasons; F17.210 Nicotine dependence, cigarettes, uncomplicated; F15.10 Other stimulant abuse, uncomplicated
CPT/HCPCS: 36415; 80048; 80076; 80143; 80307; 80320; 81003; 85025; 87426; 99285; 99406; C9803; G0480

== ENCOUNTER 2022-02-21 11:41 | Emergency (ER) | payer MEDICAID ==
[~2022-02-21] VITALS: Ht 152.4 cm; Wt 62.1 kg
[2022-02-21 11:45] VITALS: BP 124/72
--- NOTE | 2022-02-21 12:16 | NUR ---
SEEN AND EXAMINED BY .
[2022-02-21] MEDS: LIDOCAINE HCL/PF 1% 30 ML VIAL TP ONE (12:30)
[2022-02-21] MEDS ORDERED: LIDOCAINE 1% INJ 50 ML MDV IJ ONE (12:34)
--- NOTE | 2022-02-21 13:10 | NUR ---
INCISION AND DRAINAGE DONE BY .
[2022-02-21] MEDS ORDERED: LIDOCAINE HCL/PF 1% 30 ML SDV ONE (13:21)
[2022-02-21] MEDS ORDERED: SULF1TAB48 PO (13:43)
[2022-02-21] MEDS ORDERED: CEPH500T PO (13:43)
--- NOTE | 2022-02-21 13:51 | NUR ---
Patient discharged to home in stable condition. Written and verbal after care instructions given. Patient verbalizes understanding of instruction.
== END 2022-02-21 13:52 | disposition home or self-care (01) ==
LOC: ER 12:21
DX: L02.31 Cutaneous abscess of buttock (principal); F20.9 Schizophrenia, unspecified; F17.200 Nicotine dependence, unspecified, uncomplicated; Z86.69 Personal history of other diseases of the nervous system and sense organs; Z88.8 Allergy status to other drugs, medicaments and biological substances; Z60.2 Problems related to living alone; Z79.899 Other long term (current) drug therapy
CPT/HCPCS: 10060; 76942; 99284; A6403; J3490 ×3

== ENCOUNTER 2023-02-16 08:53 | Emergency (ER) | payer MEDICAID ==
[~2023-02-16] VITALS: Ht 167.6 cm; Wt 64.0 kg
[~2023-02-16 08:53] MED LIST changes: +CEPH500T PO; +SULF1TAB48 PO
--- NOTE | 2023-02-16 09:10 | NUR ---
BIB FOR MEDICAL CLEARANCE. SI WITH NO SPECIFIC PLAN. A/O X 3, ABLE TO MAKE NEEDS KNOWN, TOLERATING WELL ON ROOM AIR.
--- NOTE | 2023-02-16 09:11 | NUR ---
URINE SAMPLE COLLECTED AND SENT TO LAB
--- NOTE | 2023-02-16 09:36 | NUR ---
COVID SWAB COLLECTED AND SENT TO LAB
--- NOTE | 2023-02-16 09:36 | NUR ---
DEVELOPER ADVOCATE AT BEDSIDE FOR BLOOD DRAW
[2023-02-16 09:54] LABS: BASOPHILS % (AUTO) 0.5 % (0.0-2.0); EOSINOPHILS % (AUTO) 1.2 % (0.0-6.0); HEMATOCRIT 44 % (39-51); HEMOGLOBIN 14.7 g/dL (13.5-17.5); LYMPHOCYTES # (AUTO) 1.8 K/uL (0.8-4.8); LYMPHOCYTES % (AUTO) 22.2 % (20.0-44.0); MEAN CORPUSCULAR HGB CONC 34 g/dl (31.0-36.0); MEAN CORPUSCULAR VOLUME 87 fL (80-96); MONOCYTES # (AUTO) 0.4 K/uL (0.1-1.30); MONOCYTES % (AUTO) 4.5 % (2.0-12.0); NEUTROPHILS # (AUTO) 5.8 K/uL (1.8-8.9); NEUTROPHILS % (AUTO) 71.6 % (43.0-81.0); PLATELET COUNT (AUTO) 254 K/uL (150-450); RED BLOOD CELL COUNT(AUTO) 5.07 MIL/uL (4.5-6.0); WHITE BLOOD COUNT (AUTO) 8.1 K/uL (4.3-11.0)
[2023-02-16 10:02] LABS: BILIRUBIN,URINE NEGATIVE (NEGATIVE); COLOR,URINE YELLOW (YELLOW); LEUKOCYTE ESTERASE ,URINE NEGATIVE (NEGATIVE); NITRITE, URINE NEGATIVE (NEGATIVE); PROTEIN,URINE NEGATIVE (NEGATIVE); UGLUCOSE NEGATIVE (NEGATIVE); UROBILINOGEN,URINE 0.2 EU/dL (0.2)
[2023-02-16 10:17] LABS: ALBUMIN 4.4 g/dL (3.4-5.0); BILIRUBIN,DIRECT 0.3 mg/dL (0.0-0.2); BILIRUBIN,TOTAL 1.8 mg/dL (0.2-1.0); CALCIUM, SERUM 9.3 mg/dL (8.5-10.1); CREATININE 0.9 mg/dL (0.6-1.3); POTASSIUM 3.6 mmol/L (3.5-5.1)
--- NOTE | 2023-02-16 15:00 | NUR ---
FAXED CLINICALS TO [facility] AND [facility].
[2023-02-16 15:51] VITALS: BP 132/81
--- NOTE | 2023-02-16 15:57 | NUR ---
PT ACCEPTED TO [facility] UNDER DR. YARBROUGH. PLEASE CALL [phone] FOR REPORT. WILL GET NOTIFIED ETA OF MANAGER INTERMEDIATE.
--- NOTE | 2023-02-16 16:35 | NUR ---
PATIENT PICKUP BY [facility] STAFF FOR TRANSFER IN A STABLE- COOPERATIVE BEHAVIOR.
== END 2023-02-16 16:35 ==
LOC: ER 09:07
DX: F22 Delusional disorders (principal); F20.9 Schizophrenia, unspecified; F17.200 Nicotine dependence, unspecified, uncomplicated; Z60.2 Problems related to living alone; Z79.899 Other long term (current) drug therapy; Z20.822 Contact with and (suspected) exposure to COVID-19; Z88.1 Allergy status to other antibiotic agents
CPT/HCPCS: 85025; 80048; 80076; 81003; 99285; 36415; 87426; 80143; 80320; 80307; C9803; G0480

== ENCOUNTER 2023-03-03 04:06 | Emergency (ER) | payer MEDICAID ==
[~2023-03-03] VITALS: Ht 167.6 cm; Wt 64.0 kg
[2023-03-03 05:15] VITALS: BP 121/71
--- NOTE | 2023-03-03 05:15 | NUR ---
DIZZINESS, HAS VISUAL HALLUCINATION THAT 40 PEOPLE AND MORE ARE TRYING TO HURT HIM. HE DOESNT FEEL SAFE.- SUICIDAL THOUGHTS AT THE MOMENT. PATIENT IS TALKATIVE, CHANGED TO GOWN. PLACED IN BED 14
--- NOTE | 2023-03-03 05:15 | NUR ---
URINE AND COVID SWAB DONE AND SENT TO LAB
[2023-03-03 05:39] LABS: BASOPHILS % (AUTO) 0.7 % (0.0-2.0); EOSINOPHILS % (AUTO) 3.7 % (0.0-6.0); HEMATOCRIT 42 % (39-51); LYMPHOCYTES # (AUTO) 2.1 K/uL (0.8-4.8); LYMPHOCYTES % (AUTO) 49.3 % (20.0-44.0); MEAN CORPUSCULAR HGB CONC 33 g/dl (31.0-36.0); MEAN CORPUSCULAR VOLUME 87 fL (80-96); MONOCYTES # (AUTO) 0.3 K/uL (0.1-1.30); MONOCYTES % (AUTO) 6.2 % (2.0-12.0); NEUTROPHILS # (AUTO) 1.7 K/uL (1.8-8.9); NEUTROPHILS % (AUTO) 40.1 % (43.0-81.0); PLATELET COUNT (AUTO) 293 K/uL (150-450); RED BLOOD CELL COUNT(AUTO) 4.81 MIL/uL (4.5-6.0); WHITE BLOOD COUNT (AUTO) 4.2 K/uL (4.3-11.0)
[2023-03-03 06:18] LABS: BILIRUBIN,URINE NEGATIVE (NEGATIVE); COLOR,URINE YELLOW (YELLOW); LEUKOCYTE ESTERASE ,URINE NEGATIVE (NEGATIVE); NITRITE, URINE NEGATIVE (NEGATIVE); PROTEIN,URINE NEGATIVE (NEGATIVE); UGLUCOSE NEGATIVE (NEGATIVE); UROBILINOGEN,URINE 0.2 EU/dL (0.2)
[2023-03-03 07:01] LABS: ALANINE AMINOTRANSFERASE 34 U/L (12-78); ALBUMIN 4.4 g/dL (3.4-5.0); ALCOHOL, BLOOD 119 mg/dL (0-10); ALKALINE PHOSPHATASE 116 U/L (46-116); ASPARTATE AMINOTRANSFERASE 27 U/L (15-37); BILIRUBIN,DIRECT 0.3 mg/dL (0.0-0.2); BILIRUBIN,TOTAL 1.4 mg/dL (0.2-1.0); CALCIUM, SERUM 9.5 mg/dL (8.5-10.1); CARBON DIOXIDE 25 mmol/L (21-32); CHLORIDE 104 mmol/L (98-107); CREATININE 0.9 mg/dL (0.6-1.3); GLUCOSE 75 mg/dL (74-106); POTASSIUM 3.6 mmol/L (3.5-5.1); SODIUM SERUM 139 mmol/L (136-145); TOTAL PROTEIN, SERUM 8.1 g/dL (6.4-8.2); UREA NITROGEN, BLOOD 10 mg/dL (7-18)
--- NOTE | 2023-03-03 08:47 | NUR ---
CALLED MOPHEAD TRIMMER AND WRAPPER AND LEFT VOICEMAIL
--- NOTE | 2023-03-03 10:30 | NUR ---
FAXED FACESHEET AND CLINICALS TO [facility]
--- NOTE | 2023-03-03 13:02 | NUR ---
FAXED UPDATED CLINICALS TO [facility]
--- NOTE | 2023-03-03 13:55 | NUR ---
Patient is awaing approval from [facility].
[2023-03-03] MEDS ORDERED: ACETAMINOPHEN 325 MG TABLET PO ONE (14:30)
[2023-03-03] MEDS ORDERED: ACETAMINOPHEN 325 MG TABLET ONE (14:31)
--- NOTE | 2023-03-03 14:44 | NUR ---
SYLWIA FROM [facility] CALLED AND PT ACCEPTED UNDER DR. SONG AT [facility]. NUMBER FOR REPORT IS [phone] EXT [phone]. ETA IS 45 MIN
[2023-03-03] MEDS ORDERED: GABAPENTIN 100 MG CAPSULE ONE (15:53)
[2023-03-03] MEDS ORDERED: GABAPENTIN 100 MG CAPSULE PO ONE (16:00)
--- NOTE | 2023-03-03 16:00 | NUR ---
PATIENT PICKUP BY [facility] PARACHUTE SUPERVISOR IN A STABLE COOPERATIVE BEHAVIOR FOR TRANSFER- STEFANIE.
== END 2023-03-03 16:00 ==
LOC: ER 04:11
DX: R44.1 Visual hallucinations (principal); F31.9 Bipolar disorder, unspecified; F17.200 Nicotine dependence, unspecified, uncomplicated; Z88.8 Allergy status to other drugs, medicaments and biological substances; Z60.2 Problems related to living alone; Z20.822 Contact with and (suspected) exposure to COVID-19
CPT/HCPCS: 99285; 85025; 80048; 80076; 81003; 36415; 87426; 80143; 80320; 80307; C9803; G0480

== ENCOUNTER 2023-10-08 19:36 | Emergency (ER) | payer MEDICAID ==
[~2023-10-08] VITALS: Ht 167.6 cm; Wt 68.5 kg
[2023-10-09 01:29] VITALS: TEMP 97.7
[2023-10-09 02:33] LABS: BASOPHILS % (AUTO) 0.8 % (0.0-2.0); EOSINOPHILS % (AUTO) 0.5 % (0.0-6.0); HEMATOCRIT 43 % (39-51); HEMOGLOBIN 14.1 g/dL (13.5-17.5); LYMPHOCYTES # (AUTO) 1.3 K/uL (0.8-4.8); LYMPHOCYTES % (AUTO) 31.8 % (20.0-44.0); MEAN CORPUSCULAR HEMOGLOBIN 29 PG (26.0-33.0); MEAN CORPUSCULAR HGB CONC 33 g/dl (31.0-36.0); MEAN CORPUSCULAR VOLUME 87 fL (80-96); MONOCYTES # (AUTO) 0.5 K/uL (0.1-1.30); MONOCYTES % (AUTO) 12.2 % (2.0-12.0); NEUTROPHILS # (AUTO) 2.2 K/uL (1.8-8.9); NEUTROPHILS % (AUTO) 54.7 % (43.0-81.0); PLATELET COUNT (AUTO) 260 K/uL (150-450); RED BLOOD CELL COUNT(AUTO) 4.92 MIL/uL (4.5-6.0); RED CELL DISTRIBUTION WIDTH 14.4 % (11.5-15.0); WHITE BLOOD COUNT (AUTO) 4.1 K/uL (4.3-11.0)
[2023-10-09 02:44] LABS: APPEARANCE,URINE CLEAR (CLEAR); BILIRUBIN,URINE NEGATIVE (NEGATIVE); BLOOD, URINE NEGATIVE Ery/uL (NEGATIVE); COLOR,URINE YELLOW (YELLOW); KETONES,URINE 1+ mg/dL (NEGATIVE); LEUKOCYTE ESTERASE ,URINE NEGATIVE (NEGATIVE); NITRITE, URINE NEGATIVE (NEGATIVE); PH,URINE 5.5 (5.0-8.0); PROTEIN,URINE TRACE mg/dl (NEGATIVE); UGLUCOSE NEGATIVE (NEGATIVE); UROBILINOGEN,URINE 0.2 EU/dL (0.2)
[2023-10-09 02:45] LABS: CALCIUM, SERUM 9.3 mg/dL (8.5-10.1); CARBON DIOXIDE 27 mmol/L (21-32); CHLORIDE 99 mmol/L (98-107); CREATININE 0.9 mg/dL (0.6-1.3); GLUCOSE 88 mg/dL (74-106); POTASSIUM 3.8 mmol/L (3.5-5.1); SODIUM SERUM 137 mmol/L (136-145); UREA NITROGEN, BLOOD 14 mg/dL (7-18)
[2023-10-09 02:46] LABS: ADD URINE CULTURE NO; BACTERIA,URINE Rare /HPF (None Seen); RBC,URINE 0-2 /HPF (0-2); SQUAMOUS EPITHELIAL CELL,UR Few /HPF (None Seen); WBC,URINE 0-2 /HPF (0-3)
[2023-10-09 02:55] LABS: ALANINE AMINOTRANSFERASE 45 U/L (12-78); ALBUMIN 4.3 g/dL (3.4-5.0); ALCOHOL, BLOOD < 3 mg/dL (0-10); ALKALINE PHOSPHATASE 141 U/L (46-116); ASPARTATE AMINOTRANSFERASE 26 U/L (15-37); BILIRUBIN,DIRECT 0.3 mg/dL (0.0-0.2); BILIRUBIN,TOTAL 1.6 mg/dL (0.2-1.0); TOTAL PROTEIN, SERUM 8.5 g/dL (6.4-8.2)
[2023-10-09 02:58] LABS: BARBITURATE, URINE NEGATIVE (NEGATIVE); BENZODIAZEPINE, URINE NEGATIVE (NEGATIVE); COCCAINE, URINE NEGATIVE (NEGATIVE); OPIATE, URINE NEGATIVE (NEGATIVE); PHENCYCLIDINE SCREEN,URINE NEGATIVE (NEGATIVE)
[2023-10-09 02:59] LABS: AMPHETAMINE, URINE POSITIVE (NEGATIVE); CANNABINOID, URINE POSITIVE (NEGATIVE)
[2023-10-09 02:59] LABS: ACETAMINOPHEN <10 ug/ml (10-30); SALICYLATE 0.2 mg/dL (2.8-20.0)
[2023-10-09 04:17] VITALS: BP 144/79; O2SAT 99
== END 2023-10-09 04:50 ==
LOC: ER 19:51
DX: F32.A Depression, unspecified (principal); E80.4 Gilbert syndrome; F19.10 Other psychoactive substance abuse, uncomplicated; F20.9 Schizophrenia, unspecified; F17.200 Nicotine dependence, unspecified, uncomplicated; Z20.822 Contact with and (suspected) exposure to COVID-19; Z79.899 Other long term (current) drug therapy; Z88.1 Allergy status to other antibiotic agents
CPT/HCPCS: 36415; 80048-TC; 80076-TC; 81001; 85025-TC; G0480

== ENCOUNTER 2023-11-28 06:37 | Emergency (ER) | payer MEDICAID ==
[~2023-11-28] VITALS: Ht 167.6 cm; Wt 70.3 kg
[2023-11-28 09:09] LABS: BASOPHILS # (AUTO) 0.1 K/uL (0.0-0.2); BASOPHILS % (AUTO) 0.7 % (0.0-2.0); EOSINOPHILS % (AUTO) 0.1 % (0.0-6.0); HEMATOCRIT 39 % (39-51); LYMPHOCYTES % (AUTO) 21.9 % (20.0-44.0); MEAN CORPUSCULAR HEMOGLOBIN 29 PG (26.0-33.0); MEAN CORPUSCULAR HGB CONC 34 g/dl (31.0-36.0); MEAN CORPUSCULAR VOLUME 86 fL (80-96); MONOCYTES # (AUTO) 0.6 K/uL (0.1-1.30); MONOCYTES % (AUTO) 6.6 % (2.0-12.0); NEUTROPHILS # (AUTO) 6.4 K/uL (1.8-8.9); NEUTROPHILS % (AUTO) 70.7 % (43.0-81.0); PLATELET COUNT (AUTO) 285 K/uL (150-450); RED BLOOD CELL COUNT(AUTO) 4.51 MIL/uL (4.5-6.0); RED CELL DISTRIBUTION WIDTH 15.1 % (11.5-15.0)
[2023-11-28 09:20] LABS: APPEARANCE,URINE CLEAR (CLEAR); BILIRUBIN,URINE NEGATIVE (NEGATIVE); BLOOD, URINE NEGATIVE Ery/uL (NEGATIVE); COLOR,URINE YELLOW (YELLOW); KETONES,URINE 3+ mg/dL (NEGATIVE); LEUKOCYTE ESTERASE ,URINE NEGATIVE (NEGATIVE); NITRITE, URINE NEGATIVE (NEGATIVE); PH,URINE 5.5 (5.0-8.0); PROTEIN,URINE NEGATIVE (NEGATIVE); UGLUCOSE NEGATIVE (NEGATIVE); UROBILINOGEN,URINE 0.2 EU/dL (0.2)
[2023-11-28 09:22] VITALS: TEMP 97.8
[2023-11-28 09:26] LABS: ALANINE AMINOTRANSFERASE 35 U/L (12-78); ALBUMIN 4.5 g/dL (3.4-5.0); ALCOHOL, BLOOD 3 mg/dL (0-10); ALKALINE PHOSPHATASE 112 U/L (46-116); ASPARTATE AMINOTRANSFERASE 35 U/L (15-37); BILIRUBIN,DIRECT 0.4 mg/dL (0.0-0.2); BILIRUBIN,TOTAL 3.1 mg/dL (0.2-1.0); CALCIUM, SERUM 9.2 mg/dL (8.5-10.1); CARBON DIOXIDE 25 mmol/L (21-32); CHLORIDE 103 mmol/L (98-107); CREATININE 1.1 mg/dL (0.6-1.3); GLUCOSE 87 mg/dL (74-106); POTASSIUM 3.9 mmol/L (3.5-5.1); SODIUM SERUM 140 mmol/L (136-145); UREA NITROGEN, BLOOD 23 mg/dL (7-18)
[2023-11-28 09:28] LABS: ACETAMINOPHEN 0 ug/ml (10-30)
[2023-11-28 09:29] LABS: SALICYLATE < 0.2 mg/dL (2.8-20.0)
[2023-11-28 09:32] LABS: BARBITURATE, URINE NEGATIVE (NEGATIVE); BENZODIAZEPINE, URINE NEGATIVE (NEGATIVE); CANNABINOID, URINE NEGATIVE (NEGATIVE); COCCAINE, URINE NEGATIVE (NEGATIVE); OPIATE, URINE NEGATIVE (NEGATIVE); PHENCYCLIDINE SCREEN,URINE NEGATIVE (NEGATIVE)
[2023-11-28 09:39] LABS: AMPHETAMINE, URINE POSITIVE (NEGATIVE)
[2023-11-28 10:09] LABS: ADD URINE CULTURE NO; BACTERIA,URINE Rare /HPF (None Seen); RBC,URINE 0-2 /HPF (0-2); SQUAMOUS EPITHELIAL CELL,UR Few /HPF (None Seen); WBC,URINE 0-2 /HPF (0-3)
[2023-11-28 10:10] LABS: MUCUS,URINE Moderate /LPF (None Seen)
[2023-11-28 13:00] VITALS: BP 128/84; O2SAT 97
== END 2023-11-28 13:04 ==
LOC: ER 06:39
DX: F29 Unspecified psychosis not due to a substance or known physiological condition (principal); F20.9 Schizophrenia, unspecified; F31.9 Bipolar disorder, unspecified; Z79.899 Other long term (current) drug therapy; Z20.822 Contact with and (suspected) exposure to COVID-19; Z88.1 Allergy status to other antibiotic agents
CPT/HCPCS: 36415; 80048-TC; 80076-TC; 81001; 85025-TC; G0480